=== PATIENT | female | born 1940 | race Caucasian/White ===

== ENCOUNTER → 2019-09-10 | Outpatient (CLI) | payer MEDICARE ==
--- NOTE | 2019-09-10 13:42 | XR ---
EXAMINATION TYPE: XR knee complete LT DATE OF EXAM: 09/10/2019 CLINICAL HISTORY: Bruising and pain after fall injury TECHNIQUE: Three views of the left knee are obtained. COMPARISON: None. FINDINGS: There is no acute fracture/dislocation evident in left knee. Meniscal calcification is pre sent. Moderate to severe narrowing patellofemoral compartment with mild to moderate spurring . Modera te narrowing medial and lateral tibiofemoral compartments. Mild to moderate spurring medial tibial fe moral compartment. Overlying clothing material is present. IMPRESSION: There is no acute fracture or dislocation in the left knee.
== END | disposition home or self-care (01) ==
LOC: RADXRMAIN 13:16
PROVIDERS: ATTEND Family Medicine
DX: M25.562 Pain in left knee (principal)

== ENCOUNTER → 2020-08-06 | Outpatient (CLI) | payer MEDICARE ==
--- NOTE | 2020-08-06 10:08 | US ---
EXAMINATION TYPE: US gallbladder DATE OF EXAM: 08/06/2020 COMPARISON: NONE CLINICAL HISTORY: K81.9 Cholysistitis. acid reflux EXAM MEASUREMENTS: Liver Length: 15.0 cm Gallbladder Wall: 0.3 cm CBD: 0.6 cm Right Kidney: 9.9 x 3.3 x 3.9 cm *Technical limitations due to large amount of overlying bowel content Pancreas: Obscured by bowel gas Liver: appears wnl Gallbladder: no evidence of stones Evidence for sonographic Reyez's sign: no CBD: appears wnl Right Kidney: no evidence of hydronephrosis IMPRESSION: No distinct abnormality seen.
== END | disposition home or self-care (01) ==
LOC: RADUSWWP 09:28
PROVIDERS: ATTEND Family Medicine
DX: K81.9 Cholecystitis, unspecified (principal)
CPT/HCPCS: 76705

== ENCOUNTER → 2021-07-01 | Outpatient (CLI) | payer MEDICARE ==
--- NOTE | 2021-07-01 17:21 | XR ---
Left wrist HISTORY: Trauma 4 days prior, pain 4 views the left wrist Some remodeling is present at the radiocarpal joint. Bone mineralization is reduced. There is soft ti ssue swelling. Osteopenia arthritic change present at the carpometacarpal joint of the first digit an d intercarpal row radial aspect. Chondrocalcinosis suspected along the triangular fibrocartilage. Sma ll ossific density noted at the dorsal and volar aspect of the joint, possibly well-corticated. IMPRESSION: No dislocation is evident. Osteoarthritis, consider crystal deposition arthropathy. Diffi cult to exclude a small chip fracture, wrist MRI or CT may be of benefit
== END | disposition home or self-care (01) ==
LOC: RADXRMAIN 16:21
PROVIDERS: ATTEND Family Medicine
DX: M19.032 Primary osteoarthritis, left wrist (principal)

== ENCOUNTER 2025-04-05 20:06 | Inpatient (IN) | payer MEDICARE ==
--- NOTE | 2025-04-05 20:29 | ED ---
Fall HPI - General Chief Complaint: Fall Stated Complaint: Fall Time Seen by Provider: 04/05/25 20:12 Source: patient, EMS, RN notes reviewed, old records reviewed, Caregiver Mode of arrival: EMS Limitations: no limitations, altered mental status - History of Present Illness Initial Comments: This is a 84-year-old female who had a significant fall prior to arrival, family overheard patient fall and is complaining of severe right-sided chest pain back pain headache and neck pain. 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 Witnessed: yes, by family Place Fall Occurred: home Loss of Consciousness: none Prolonged Down Time?: no Symptoms Prior to Fall: none Location: head, neck, chest, back Location - Extremities: Right: Shoulder Severity: severe Severity scale (1-10): 10 Quality: sharp Context: tripped/slipped Associated Symptoms: denies - Related Data Home Medications Medication Instructions Recorded Confirmed Escitalopram [Lexapro] 10 mg PO DAILY 04/06/25 04/06/25 Omeprazole 40 mg PO DAILY 04/06/25 04/06/25 Simvastatin [Zocor] 40 mg PO DAILY 04/06/25 04/06/25 Allergies Allergy/AdvReac Type Severity Reaction Status Date / Time Penicillins Allergy Rash/Hives Verified 04/06/25 09:28 Sulfa (Sulfonamide Allergy Rash/Hives Verified 04/06/25 09:28 Antibiotics) temazepam [From Restoril] Allergy Unknown Verified 04/06/25 09:28 cephalexin [From Keflex] AdvReac Nausea & Verified 04/06/25 09:28 Vomiting codeine AdvReac Nausea & Verified 04/06/25 09:28 Vomiting erythromycin base AdvReac Unknown Verified 04/06/25 09:28 hydrocodone [From Vicodin] AdvReac Nausea & Verified 04/06/25 09:28 Vomiting methylprednisolone AdvReac Unknown Verified 04/06/25 09:28 procaine [From Novocain] AdvReac Unknown Verified 04/06/25 09:28 Review of Systems ROS Statement: Those systems with pertinent positive or pertinent negative responses have been documented in the HPI. ROS Other: All systems not noted in ROS Statement are negative. Past Medical History Past Medical History: Cancer, Hyperlipidemia Past Surgical History: Hysterectomy, Joint Replacement Additional Past Surgical History / Comment(s): Cystocele repair, bunionectomy, nose cancer surgery, hip surgery Smoking Status: Never smoker Past Alcohol Use History: None Reported Past Drug Use History: None Reported General Exam - General Exam Comments Initial Comments: GCS 15 BS diminished Subcu Emphysems R chest Limitations: no limitations General appearance: alert, in no apparent distress, anxious, cachectic Head exam: Present: atraumatic, normocephalic, normal inspection Eye exam: Present: normal appearance, PERRL, EOMI. Absent: scleral icterus, conjunctival injection, periorbital swelling ENT exam: Present: normal exam, mucous membranes moist Neck exam: Present: normal inspection. Absent: tenderness, meningismus, lymphadenopathy Respiratory exam: Present: normal lung sounds bilaterally. Absent: respiratory distress, wheezes, rales, rhonchi, stridor Cardiovascular Exam: Present: regular rate, normal rhythm, normal heart sounds. Absent: systolic murmur, diastolic murmur, rubs, gallop, clicks GI/Abdominal exam: Present: soft, normal bowel sounds. Absent: distended, tenderness, guarding, rebound, rigid Extremities exam: Present: normal inspection, full ROM, normal capillary refill. Absent: tenderness, pedal edema, joint swelling, calf tenderness Back exam: Present: normal inspection Neurological exam: Present: alert, oriented X3, CN II-XII intact Psychiatric exam: Present: normal affect, normal mood Skin exam: Present: warm, dry, intact, normal color. Absent: rash Course Vital Signs 04/05/25 04/05/25 04/06/25 20:11 21:43 00:04 Temperature 97.2 F L Pulse Rate 55 L 56 L 60 Respiratory 18 18 20 Rate Blood Pressure 196/88 192/81 191/82 O2 Sat by Pulse 95 96 98 Oximetry 04/06/25 04/06/25 04/06/25 02:55 03:48 05:00 Temperature Pulse Rate 79 81 78 Respiratory 20 16 18 Rate Blood Pressure 185/82 154/61 154/74 O2 Sat by Pulse 97 97 97 Oximetry 04/06/25 04/06/25 04/06/25 07:31 08:00 09:30 Temperature Pulse Rate 56 L 52 L Respiratory 16 21 Rate Blood Pressure 181/79 181/78 O2 Sat by Pulse 97 100 100 Oximetry 04/06/25 04/06/25 04/06/25 10:40 12:00 13:00 Temperature Pulse Rate 56 L 61 58 L Respiratory 18 34 H 20 Rate Blood Pressure 163/99 177/74 175/70 O2 Sat by Pulse 98 97 99 Oximetry 04/06/25 14:40 Temperature Pulse Rate 52 L Respiratory 23 Rate Blood Pressure 162/66 O2 Sat by Pulse 99 Oximetry - Reevaluation(s) Reevaluation #1: 04/05/25 22:37 Medical records reviewed Reevaluation #2: 04/05/25 22:37 Patient's pain is improved Patient breathing improved after chest tube Reevaluation #3: 04/05/25 22:37 Patient informed of results and questions answered Reevaluation #4: Was pt. sent in by a medical professional or institution (, PA, COMMISSIONER OF OFFICIALS, urgent care, hospital, or shelter...) When possible be specific @ -no Did you speak to anyone other than the patient for history (EMS, parent, family, police, friend...)? What history was obtained from this source @ -no Did you review nursing and triage notes (agree or disagree)? Why? @ -agree Are old charts reviewed (outside hosp., previous admission, EMS record, old EKG, old radiological studies, urgent care reports/EKG's, shelter records)? Report findings @ -yes Differential Diagnosis (chest pain, altered mental status, abdominal pain women, abdominal pain men, vaginal bleeding, weakness, fever, dyspnea, syncope, headache, dizziness, GI bleed, back pain, seizure, CVA, palpatations, mental hea lth, musculoskeletal)? @ -prior EKG interpreted by me (3pts min.). @ -yes X-rays interpreted by me (1pt min.). @ -yes n positive for Thora vent placed correctly CT interpreted by me (1pt min.). @ -Yes positive multiple rib fractures right-sided with pneumothorax moderate U/S interpreted by me (1pt. min.). @ -no What testing was considered but not performed or refused? (CT, X-rays, U/S, labs)? Why? @ -none What meds were considered but not given or refused? Why? @ -none Did you discuss the management of the patient with other professionals (professionals i.e. , PA, COMMISSIONER OF OFFICIALS, lab, RT, psych nurse, social security assessor, residential nurse, teacher, combatant diver officer, family preservation caseworker)? Give summary @ -no Was smoking cessation discussed for >3mins.? @ -no Was critical care preformed (if so, how long)? @ -yes31 Were there social determinants of health that impacted care today? How? (Homelessness, low income, unemployed, alcoholism, drug addiction, transportation, low edu. Level, literacy, decrease access to med. care, custodial, rehab)? @ -none Was there de-escalation of care discussed even if they declined (Discuss DNR or withdrawal of care, Hospice)? DNR status @ -no What co-morbidities impacted this encounter? (DM, HTN, Smoking, COPD, CAD, Cancer, CVA, ARF, Chemo, Hep., AIDS, mental health diagnosis, sleep apnea, morbid obesity)? @ -none Was patient admitted / discharged? Hospital course, mention meds given and route, prescriptions, significant lab abnormalities, going to OR and other pertinent info. @ - 84 female to the ER will be admitted for multiple rib fractures pulmonary contusions right-sided chest tube. Patient will admit to the ICU severe back pain and chest pain improved breathing has improved Admitted Undiagnosed new problem with uncertain prognosis? @ -no Drug Therapy requiring intensive monitoring for toxicity (Heparin, Nitro, Insulin, Cardizem)? @ -no Were any procedures done? @ -Yes chest tube thoracostomy right side Diagnosis/symptom? @ -Fall, right-sided rib fracture, right-sided pneumothorax, weakness Acute, or Chronic, or Acute on Chronic? @ -Acute Uncomplicated (without systemic symptoms) or Complicated (systemic symptoms)? @ -Complicated Side effects of treatment? @ -no Exacerbation, Progression, or Severe Exacerbation? @ -exacerbation Poses a threat to life or bodily function? How? (Chest pain, USA, IA, pneumonia, PE, COPD, DKA, ARF, appy, cholecystitis, CVA, Diverticulitis, Homicidal, Suicidal, threat to staff... and all critical care pts) @ -yes extremes of age, pneumothorax Reevaluation #5: Differential Back Pain: Strain, zoster, cauda equina syndrome, epidural abscess, vertebral osteomyelitis, discitis, fracture, subluxation, disc herniation, DJD, spinal stenosis, dissection, AAA, pancreatitis, peptic ulcer disease, pyelonephritis, kidney stone, this is not meant to be an all-inclusive list. Differential Weakness: Hypoglycemia, shock, sepsis, hyponatremia, anemia, infection, IA, ETOH, adverse medicine reaction, overdose, stroke, this is not meant to be an all-inclusive list. - Consultations Consultation #1: Spoke with Dr. Verma on-call trauma accepts the admission Consultation #2: Spoke with with ICU who agrees patient to ICU Procedures - Chest Tube Insertion Consent Obtained: verbal consent Side of Procedure: right Indication: Pneumothorax Placed on monitor/pulse oximetry: Yes Site Prep: Chloroprep Local Anesthesia: Lidocaine 1% Insertion Site: Other (Midclavicular, fourth intercostal) Tube Size (Guinean): Other (For event) Returns: Air Sutured in Place: No Attached to Suction: Yes Type of Suction: Pleuravac Repeat X-ray Results: Lung Inflated Patient Tolerated Procedure: well Complications: Pain Medical Decision Making - Medical Decision Making 84 female to the ER will be admitted for multiple rib fractures pulmonary contusions right-sided chest tube. Patient will admit to the ICU severe back pain and chest pain improved breathing has improved - Lab Data Result diagrams: 04/09/25 05:57 04/09/25 05:57 - EKG Data -: EKG Interpreted by Me (EKG is sinus bradycardia 59 WA 207 QRS 150 QTc 476) - Radiology Data Radiology results: report reviewed (CT brain C-spine chest positive moderate right-sided pneumothorax, chest x-ray improved), image reviewed Critical Care Time Critical Care Time: Yes Total Critical Care Time: 31 Disposition Clinical Impression: Fall, Fracture of rib of right side, Pneumothorax, right, Back contusion, Weakness, Ribs, multiple fractures Disposition: ADMITTED IP TO THIS [facility] Condition: Serious Is patient prescribed a controlled substance at d/c from ED?: No Time of Disposition: 22:40
[2025-04-05] MEDS: MORPHINE SULFATE 4 MG/ML SYRINGE IVP STA (21:38)
[2025-04-05] MEDS: SODIUM CHLORIDE 0.9% 500 ML 500 ML IV ONE (21:41)
--- NOTE | 2025-04-05 21:48 | CT ---
EXAMINATION TYPE: CT brain cspine wo con DATE OF EXAM: 04/05/2025 9:37 PM COMPARISON: None. CLINICAL INDICATION: Female, 84 years old with history of fall; fall TECHNIQUE: Brain: Multiple axial CT images of the brain were obtained without IV contrast. Cspine: Axial CT images from the skull base to the inferior aspect of T2 we obtained without intraven ous contrast. Coronal and sagittal reformatted images were also reviewed. . CT DLP: 1266.8 mGycm, Automated exposure control for dose reduction was used. FINDINGS: Brain: Extra-axial spaces: No abnormal extra-axial fluid collections. Ventricular system: Dilatation in proportion to cerebral atrophy. Cerebral parenchyma: No acute intraparenchymal hemorrhage or mass effect. The leon-white junction is well differentiated. Scattered hypoattenuating areas are seen within the white matter, compatible wi th severe microvascular ischemic disease. Cerebellum: Unremarkable. Mass effect: No evidence of midline shift. Intracranial vasculature: unremarkable Soft tissues: Normal. Calvarium/osseous structures: No depressed skull fracture. Paranasal sinuses and mastoid air cells: Clear. Visualized orbits: Orbital contents are intact. Cervical spine: Fracture: None. Osseous structures: Multilevel degenerative disc disease changes with endplate spurring and disc oste ophyte complex's. Vertebral alignment: Within normal limits. Spinal canal/Neural Foramina: Multilevel facet arthropathy, uncovertebral hypertrophy and posterior d isc osteophyte complexes cause varying degrees of multilevel neural foraminal narrowing and spinal ca nal stenosis. Neck soft tissues: Prevertebral soft tissues are within normal limits. Other: Partially visualized subcutaneous emphysema involving the right chest wall and right-sided pne umothorax. IMPRESSION: 1. No acute intracranial process. 2. No acute fracture or traumatic subluxation of the cervical spine. [facility], , 04/05/2025 9:46 PM
--- NOTE | 2025-04-05 21:57 | CT ---
EXAMINATION TYPE: CT chest wo con DATE OF EXAM: 04/05/2025 9:37 PM COMPARISON: None. CLINICAL INDICATION: Female, 84 years old with history of fall; PHH, fall TECHNIQUE: Multiple axial images were obtained through the chest. Sagittal and coronal reformats were created for review. MIP was performed on a separate workstation. CT DLP: 246.1 mGycm, Automated exposure control for dose reduction was used. FINDINGS: Mild cardiomegaly without significant pericardial effusion. Ascending aorta without aneurysmal dilata tion. Coronary artery calcifications. Right hilar calcified lymph nodes. Extensive right chest wall and right paraspinal subcutaneous emphysema. There is a moderate size righ t-sided pneumothorax measuring up to 5.0 cm from the pleural surface. Trace bilateral pleural effusio ns. There are groundglass and consolidative changes throughout the right lung which could reflect pul monary contusions. Left lung demonstrate no evidence of pneumothorax. No sizable left-sided pleural e ffusion. Comminuted acute displaced fractures of the right lateral sixth, seventh and eighth ribs. No definite left-sided rib fracture deformity. Mild acute fracture involving the superior L1 endplate with assoc iated mild vertebral body height loss. No evidence of significant retropulsion. IMPRESSION: 1. Comminuted mildly displaced acute fractures involving the right lateral sixth, seventh and eighth ribs with associated moderate sized right pneumothorax as described above. 2. Groundglass and consolidative changes involving the residual right lung suggestive of pulmonary c ontusions. 3. Acute fracture of the L1 superior endplate with mild vertebral body height loss. 4. Extensive subcutaneous emphysema throughout the right chest wall and right paraspinal soft tissue s. 5. Small right pleural effusion/hemothorax. *Critical findings were discussed with Dr. Mauricio at 9:51 PM on 04/05/2025. [facility], , 04/05/2025 9:55 PM
[2025-04-05] MEDS: LIDOCAINE 1%-EPI 1:100,000 20 ML VIAL SQ STA (22:27)
[2025-04-05] MEDS: LORazepam 1 MG/0.5 ML VIAL IV STA (22:27)
[2025-04-05] MEDS ORDERED: IPRATROPIUM-ALBUTEROL 3 ML NEB INHALATION PRN (22:32)
[2025-04-05] MEDS ORDERED: NALOXONE 0.4 MG/ML 1 ML VIAL IV PRN ×2 (22:32)
[2025-04-05 23:43] LABS: Basophils # (A) 0.04 10*3/uL (0.00-0.10); Basophils % (A) 0.3 %; Eosinophils # (A) 0.07 10*3/uL (0.04-0.35); Eosinophils % (A) 0.6 %; HCT 37.2 % (37.2-46.3); HGB 12.1 g/dL (12.0-15.0); Lymphocytes # (A) 0.86 10*3/uL (0.90-5.00); Lymphocytes % (A) 7.2 %; MCH 30.4 pg (27.0-32.0); MCHC 32.5 g/dL (32.0-37.0); MCV 93.5 fL (80.0-97.0); Mean Platelet Volume 9.8 fL (9.5-12.2); Monocytes # (A) 0.62 10*3/uL (0.20-1.00); Monocytes % (A) 5.2 %; Neutrophils # (A) 10.22 10*3/uL (1.80-7.70); Neutrophils % (A) 86.1 %; Platelet Count 227 10*3/uL (140-440); RBC 3.98 10*6/uL (4.10-5.20); RDW 13.4 % (11.5-14.5); WBC 11.88 10*3/uL (4.50-10.00)
[2025-04-05] MEDS: DEXTROSE 5%-0.45% NACL 1,000 ML IV SCH (23:55)
[2025-04-06 00:01] LABS: INR 0.9 (<1.2); Prothrombin Time 10.3 sec (10.0-12.5)
[2025-04-06 00:07] LABS: ALT 17 U/L (4-34); AST 29 U/L (14-36); African American GFR (CKD) >90 (>60 ml/min/1.73 sqM); Alkaline Phosphatase 72 U/L (38-126); Anion Gap 9 mmol/L; Blood Urea Nitrogen 17 mg/dL (7-17); Calcium 9.1 mg/dL (8.4-10.2); Carbon Dioxide 24 mmol/L (22-30); Chloride 105 mmol/L (98-107); Glucose 121 mg/dL (74-99); Magnesium 1.7 mg/dL (1.6-2.3); Non-African American GFR(CKD) 81 (>60 ml/min/1.73 sqM); Phosphorus 3.4 mg/dL (2.5-4.5); Potassium 4.1 mmol/L (3.5-5.1); Sodium 138 mmol/L (137-145); Total Bilirubin 0.6 mg/dL (0.2-1.3); Total Protein 6.4 g/dL (6.3-8.2)
[2025-04-06 00:25] LABS: Partial Thromboplastin Time 19.3 sec (22.0-30.0)
--- NOTE | 2025-04-06 01:11 | XR ---
ADDENDUM - Added by Tana Simmons MD on 04/06/2025 1:16 AM (-04:00) Please note there is a mildly displaced fracture of the right transverse process of L5. Consider further evaluation with CT. EXAM: XR Pelvis, 1 or 2 Views CLINICAL HISTORY: Injury TECHNIQUE: Frontal view of the pelvis. COMPARISON: No relevant prior studies available. FINDINGS: Bones/joints: Degenerative changes are worse at L4-L5. No acute fracture. No dislocation. Soft tissues: Unremarkable. IMPRESSION: No acute findings in the pelvis. <MYCVCSECTION> Communications: 04/06/25 01:44 Verify Receipt Verified receipt with [facility] for Dr. Patrick on 04/06 01:44 (-04:00)
--- NOTE | 2025-04-06 02:07 | XR ---
EXAM: XR Chest, 1 View CLINICAL HISTORY: ITS.REASON XR Reason: fall TECHNIQUE: Frontal view of the chest. COMPARISON: No relevant prior studies available. FINDINGS: Lungs: No consolidation or mass. Pleural space: No acute findings. Heart: cardiomegaly. Bones/joints: No acute findings. IMPRESSION: No acute cardiopulmonary process.
--- NOTE | 2025-04-06 02:08 | XR ---
EXAM: XR Right Shoulder Complete, 2 or More Views CLINICAL HISTORY: ITS.REASON XR Reason: fall TECHNIQUE: Two or more views of the right shoulder. COMPARISON: No relevant prior studies available. FINDINGS: Bones/joints: No acute fracture. No dislocation. Mild AC joint osteoarthrosis. Soft tissues: Unremarkable. IMPRESSION: No acute osseous abnormalities.
--- NOTE | 2025-04-06 02:08 | XR ---
EXAM: XR Lumbosacral Spine, 2 or 3 Views CLINICAL HISTORY: ITS.REASON XR Reason: fall TECHNIQUE: Frontal and lateral views of the lumbar spine and sacrum. COMPARISON: No relevant prior studies available. FINDINGS: Vertebrae: No acute fracture. Minimal anterolisthesis L3 on L4. Levoscoliosis. Disc spaces: Degenerative changes. Soft tissues: Unremarkable. IMPRESSION: No acute findings.
[2025-04-06 06:16] LABS: Basophils # (A) 0.02 10*3/uL (0.00-0.10); Basophils % (A) 0.3 %; Eosinophils # (A) 0.03 10*3/uL (0.04-0.35); Eosinophils % (A) 0.4 %; HCT 35.6 % (37.2-46.3); HGB 11.5 g/dL (12.0-15.0); Lymphocytes # (A) 1.31 10*3/uL (0.90-5.00); Lymphocytes % (A) 17.1 %; MCH 30.4 pg (27.0-32.0); MCHC 32.3 g/dL (32.0-37.0); MCV 94.2 fL (80.0-97.0); Mean Platelet Volume 9.6 fL (9.5-12.2); Monocytes # (A) 0.58 10*3/uL (0.20-1.00); Monocytes % (A) 7.6 %; Neutrophils # (A) 5.71 10*3/uL (1.80-7.70); Neutrophils % (A) 74.3 %; Platelet Count 196 10*3/uL (140-440); RBC 3.78 10*6/uL (4.10-5.20); RDW 13.6 % (11.5-14.5); WBC 7.67 10*3/uL (4.50-10.00)
[2025-04-06 06:36] LABS: ALT 16 U/L (4-34); AST 27 U/L (14-36); African American GFR (CKD) >90 (>60 ml/min/1.73 sqM); Albumin 3.7 g/dL (3.5-5.0); Alkaline Phosphatase 62 U/L (38-126); Anion Gap 5 mmol/L; Blood Urea Nitrogen 15 mg/dL (7-17); Calcium 9.1 mg/dL (8.4-10.2); Carbon Dioxide 27 mmol/L (22-30); Chloride 104 mmol/L (98-107); Glucose 114 mg/dL (74-99); Lipase 51 U/L (23-300); Magnesium 1.9 mg/dL (1.6-2.3); Non-African American GFR(CKD) 82 (>60 ml/min/1.73 sqM); Phosphorus 3.7 mg/dL (2.5-4.5); Potassium 4.5 mmol/L (3.5-5.1); Sodium 136 mmol/L (137-145); Total Bilirubin 0.8 mg/dL (0.2-1.3); Total Protein 5.9 g/dL (6.3-8.2)
[2025-04-06] MEDS: MORPHINE SULFATE 2 MG/ML SYRINGE IVP PRN (06:56)
[2025-04-06] MEDS: LIDOCAINE 4% PATCH TOPICAL ONE (06:58)
--- NOTE | 2025-04-06 07:17 | XR ---
EXAMINATION TYPE: XR chest 1V DATE OF EXAM: 04/06/2025 5:54 AM COMPARISON: Chest radiographs from 04/05/2025, CT chest 04/05/2025 TECHNIQUE: XR chest 1V Portable AP radiograph of the chest. CLINICAL INDICATION:Female, 84 years old with history of ptx; FINDINGS: Lungs/Pleura: Left lung is clear. Stable position of pleural catheter overlying the right midlung. No sizable pneumothorax. No pleural effusion. Pulmonary vascularity: Unremarkable. Heart/mediastinum: Cardiomediastinal silhouette is enlarged and stable. Atherosclerotic calcificatio ns are seen in the aorta. Musculoskeletal: Right shoulder arthropathy. Redemonstration of mildly displaced right-sided lateral sixth, seventh, and eighth rib fractures Other: Similar small right chest and right supraclavicular subcutaneous emphysema. Biopsy marker with in the right breast. IMPRESSION: Overall similar examination with right pleural catheter in stable position. No sizable pneumothorax. Redemonstration of multiple right-sided rib fractures and similar subcutaneous emphysema. [facility], , 04/06/2025 7:15 AM
[2025-04-06] MEDS: ESCITALOPRAM 10 MG TAB PO SCH (10:38)
--- NOTE | 2025-04-06 12:50 | P.CNPUL ---
History of Present Illness Consult date: 04/06/25 Requesting physician: Chele Mauricio Reason for consult: pneumothorax, abnormal CXR/CT Chief complaint: Ground-level fall History of present illness: This is an 84-year-old female patient with a known history of hyperlipidemia who presented to the emergency room last evening 1 hour after sustaining a ground- level fall. She was complaining of head neck right sided chest and back pain. Right shoulder pain. CT scan of the brain and C-spine revealed no evidence of fractures. CT scan of the chest revealed comminuted mildly displaced acute fractures involving the right lateral 6th, 7th and 8th ribs with associated moderate size right pneumothorax. Groundglass and consolidative changes involving the right lung suggestive of pulmonary contusions. Acute fracture of the L1 superior endplate with mild vertebral body height loss. Extensive subcutaneous emphysema throughout the right chest wall. Lumbar spine, pelvis, right shoulder x-rays all revealed no evidence of fracture. A right sided Thora vent catheter was placed in the emergency department. Follow-up chest x-ray reveals no sizable pneumothorax. She is seen today in consultation in the emergency department. She is currently resting on a stretcher. Awake and alert in no acute distress. Maintaining O2 saturations in the 90s on 3 L/min per nasal cannula. Right sided Thora vent catheter to be placed to Pleur-evac and wall suction. White count 7.6. Hemoglobin 11.5. Platelets 196. Sodium 136. Potassium 4.5. Bicarb 27. BUN 15. Creatinine 0.65. Glucose 114. She is on D5W and half-normal saline at 60 mL/h. Receiving morphine for pain control. Review of Systems REVIEW OF SYSTEMS: CONSTITUTIONAL: Denies any recent significant weight loss or weight gain. EYES: Denies change in vision. EARS, NOSE, MOUTH, THROAT: Denies headaches, denies sore throat. CARDIOVASCULAR: Positive for right sided chest pain, no palpitations or syncopal episodes. RESPIRATORY: Positive for shortness of breath, no cough, congestion or hemoptysis. GASTROINTESTINAL: Denies change in appetite, denies abdominal pain GENITOURINARY: Denies hematuria, denies infections. MUSKULOSKELETAL: Positive for multiple areas of right sided pain. INTEGUMENTARY: Denies rash, denies eczema. NEUROLOGICAL: Denies recent memory loss, no recent seizure activity. PSYCHIATRIC: Denies anxiety, denies depression. HEMATOLOGIC/LYMPHATIC: Denies anemia, denies enlarged lymph nodes. Past Medical History Past Medical History: Cancer, Hyperlipidemia Past Surgical History: Hysterectomy, Joint Replacement Additional Past Surgical History / Comment(s): Cystocele repair, bunionectomy, nose cancer surgery, hip surgery Smoking Status: Never smoker Past Alcohol Use History: None Reported Past Drug Use History: None Reported Medications and Allergies Home Medications Medication Instructions Recorded Confirmed Type Escitalopram [Lexapro] 10 mg PO DAILY 04/06/25 04/06/25 History Omeprazole 40 mg PO DAILY 04/06/25 04/06/25 History Simvastatin [Zocor] 40 mg PO DAILY 04/06/25 04/06/25 History Allergies Allergy/AdvReac Type Severity Reaction Status Date / Time Penicillins Allergy Rash/Hives Verified 04/06/25 09:28 Sulfa (Sulfonamide Allergy Rash/Hives Verified 04/06/25 09:28 Antibiotics) temazepam [From Restoril] Allergy Unknown Verified 04/06/25 09:28 cephalexin [From Keflex] AdvReac Nausea & Verified 04/06/25 09:28 Vomiting codeine AdvReac Nausea & Verified 04/06/25 09:28 Vomiting erythromycin base AdvReac Unknown Verified 04/06/25 09:28 hydrocodone [From Vicodin] AdvReac Nausea & Verified 04/06/25 09:28 Vomiting methylprednisolone AdvReac Unknown Verified 04/06/25 09:28 procaine [From Novocain] AdvReac Unknown Verified 04/06/25 09:28 Physical Exam Vitals: Vital Signs Temp Pulse Resp BP Pulse Ox 04/06/25 12:00 61 34 H 177/74 97 04/06/25 10:40 56 L 18 163/99 98 04/06/25 09:30 52 L 21 181/78 100 04/06/25 08:00 56 L 16 181/79 100 04/06/25 07:31 97 04/06/25 05:00 78 18 154/74 97 04/06/25 03:48 81 16 154/61 97 04/06/25 02:55 79 20 185/82 97 04/06/25 00:04 60 20 191/82 98 04/05/25 21:43 56 L 18 192/81 96 04/05/25 20:11 97.2 F L 55 L 18 196/88 95 Intake and Output 04/05/25 04/06/25 04/06/25 22:59 06:59 14:59 Other: Weight 58.967 kg GENERAL EXAM: Alert, frail 84-year-old female, on 3 L nasal cannula, fairly comfortable in no apparent distress. HEAD: Normocephalic. EYES: Normal reaction of pupils, equal size. NOSE: Clear with pink turbinates. THROAT: No erythema or exudates. NECK: No masses, no JVD. CHEST: No chest wall deformity. Right sided Thora vent catheter in place to Pleur-evac and wall suction. LUNGS: Equal air entry with crackles in the right lung base. CVS: S1 and S2 normal with no audible murmur, regular rhythm. ABDOMEN: No hepatosplenomegaly, normal bowel sounds, no guarding or rigidity. SPINE: No scoliosis or deformity SKIN: No rashes CENTRAL NERVOUS SYSTEM: No focal deficits, tone is normal in all 4 extremities. EXTREMITIES: There is no peripheral edema. No clubbing, no cyanosis. Perip heral pulses are intact. Results - Laboratory Findings CBC and BMP: 04/06/25 06:00 04/06/25 06:00 PT/INR, D-dimer PT 10.3 sec (10.0-12.5) 04/05/25 23:00 INR 0.9 (<1.2) 04/05/25 23:00 Abnormal lab findings: Abnormal Labs 04/05/25 04/05/25 04/05/25 23:00 23:00 23:00 WBC 11.88 H RBC 3.98 L Hgb Hct Immature Gran # 0.07 H Neutrophils # 10.22 H Lymphocytes # 0.86 L Eosinophils # APTT 19.3 L Sodium Glucose 121 H Total Protein 04/06/25 04/06/25 06:00 06:00 WBC RBC 3.78 L Hgb 11.5 L Hct 35.6 L Immature Gran # Neutrophils # Lymphocytes # Eosinophils # 0.03 L APTT Sodium 136 L Glucose 114 H Total Protein 5.9 L - Diagnostic Findings Chest x-ray: image reviewed CT scan - chest: image reviewed Assessment and Plan Assessment: Trauma secondary to ground-level fall with comminuted mildly displaced acute fractures involving the right lateral 6th, 7th and 8th ribs with associated moderate-sized right pneumothorax. Groundglass and consolidative changes involving the residual right lung suggestive of a pulmonary contusion. Extensive subcutaneous emphysema throughout the right chest wall. Status post Thora vent placement. Follow-up chest x-ray reveals residual pneumothorax Right shoulder, hip and back pain secondary to fall. No evidence of fractures Hyperlipidemia Gastroesophageal reflux disease Lifelong non-smoker Plan: The patient was seen and evaluated All imaging, labs and medications reviewed Currently on 3 L nasal cannula Right sided Thora vent remains in place Continue to Pleur-evac and wall suction Educated regarding the use of the incentive spirometer Continue bronchodilator Titrate down the FiO2 as tolerated Assure adequate pain control Increase her activity as tolerated We will continue to follow and make further recommendations based on her clinical status I have personally seen and examined the patient, performed the documentation and the assessment and plan as written. Number of minutes spent on the visit: 20 Dictation was produced using [employer] dictation software. Please excuse any grammatical, word or spelling errors. Time with Patient: Greater than 30
--- NOTE | 2025-04-06 14:02 | P.CONS ---
History of Present Illness - Reason for Consult Consult date: 04/06/25 Medical management - History of Present Illness History of present illness; patient is a 84-year-old female with past medical history significant for hyperlipidemia presented the ER after a fall. Patient stated that she was all right last night when she walking in her house when she lost her balance ended up having a ground-level mechanical fall. Patient did not lose her consciousness. Patient denies any trauma to her head. Denies any jerking movement of any extremity. There is no complaint of weakness of any ext remity. Following fall patient started complaining of back pain and neck pain. There is no complaint of shortness of breath. Patient denies any palpitation. There is no complaint of orthopnea or PND. Denies any nausea, vomiting abdominal pain. Patient denies any complaint of dizziness. There is no complaint of headache. Because of fall, patient was brought to the ER Initial lab work done in the ER showed WBC 11.88, hemoglobin 12.1, platelet count 227, sodium 138, potassium 4.1, BUN 17, creatinine 0.66, glucose 121, lactate 1.4 calcium 9.1, AST 29, ALT 17, troponin 0.015 EKG done in the ER showed heart rate of 59 , no ST segment elevation or depression seen, no T-wave inversions seen. Chest x-ray done in the ER showed no acute cardiopulmonary process X-ray of the pelvis done showed mildly displaced fracture of the right transverse process of L5 Lumbar x-ray done showed slightly displaced fracture of the right transverse process of L5 CT head done showed no acute intracranial process CT cervical spine done showed no evidence of subluxation or fracture of the cervical spine X-ray shoulder done showed no acute fractures CT chest done showed comminuted mildly displaced acute fractures involving the right lateral 6th, 7th and 8th ribs with moderate right-sided pneumothorax Patient admitted to internal medicine service REVIEW OF SYSTEMS: CONSTITUTIONAL: No fever, no malaise, no fatigue. HEENT: No recent visual problems or hearing problems. Denied any sore throat. CARDIOVASCULAR: as mentioned above. PULMONARY: No shortness of breath, no cough, no hemoptysis. GASTROINTESTINAL: No diarrhea, no nausea, no vomiting, no abdominal pain. NEUROLOGICAL: No headaches, no weakness, no numbness. HEMATOLOGICAL: Denies any bleeding or petechiae. GENITOURINARY: Denies any burning micturition, frequency, or urgency. MUSCULOSKELETAL/RHEUMATOLOGICAL: as mentioned above ENDOCRINE: Denies any polyuria or polydipsia. The rest of the 14-point review of systems is negative. PHYSICAL EXAMINATION: GENERAL: The patient is alert and oriented x3, not in any acute distress. Well developed, well nourished. HEENT: Pupils are round and equally reacting to light. EOMI. No scleral icterus. No conjunctival pallor. Normocephalic, atraumatic. No pharyngeal erythema. No thyromegaly. CARDIOVASCULAR: S1 and S2 present. No murmurs, rubs, or gallops. PULMONARY: Chest is clear to auscultation, no wheezing or crackles. ABDOMEN: Soft, nontender, nondistended, normoactive bowel sounds. No palpable organomegaly. MUSCULOSKELETAL: No joint swelling or deformity. EXTREMITIES: No cyanosis, clubbing, or pedal edema. NEUROLOGICAL: Gross neurological examination did not reveal any focal deficits. SKIN: No rashes. Assessment and plan Ground-level fall Fracture of right 6 7th and 8th ribs Right-sided pneumothorax Pulmonary contusion acute fracture of the L1 superior endplate with mild vertebral body height loss Subcutaneous emphysema History of hyperlipidemia Depression Monitor vital signs Monitor CBC Monitor CMP Continue telemetry monitoring Continue oxygen supplementation Aggressive bronchopulmonary hygiene Ordered breathing treatments Continue chest tube management per pulmonology Continue pain management Consulted Ortho for lumbar spine fracture Resume home meds Labs and medication were reviewed.. Continue same treatment. Continue with symptomatic treatment. Resume home medication. Monitor labs and vitals. DVT and GI prophylaxis. Further recommendations as per clinical course of the patient Dictation was produced using [employer] dictation software. please excuse any grammatical, word or spelling errors. Past Medical History Past Medical History: Cancer, Hyperlipidemia Past Surgical History: Hysterectomy, Joint Replacement Additional Past Surgical History / Comment(s): Cystocele repair, bunionectomy, nose cancer surgery, hip surgery Smoking Status: Never smoker Past Alcohol Use History: None Reported Past Drug Use History: None Reported Medications and Allergies Home Medications Medication Instructions Recorded Confirmed Type Escitalopram [Lexapro] 10 mg PO DAILY 04/06/25 04/06/25 History Omeprazole 40 mg PO DAILY 04/06/25 04/06/25 History Simvastatin [Zocor] 40 mg PO DAILY 04/06/25 04/06/25 History Allergies Allergy/AdvReac Type Severity Reaction Status Date / Time Penicillins Allergy Rash/Hives Verified 04/06/25 09:28 Sulfa (Sulfonamide Allergy Rash/Hives Verified 04/06/25 09:28 Antibiotics) temazepam [From Restoril] Allergy Unknown Verified 04/06/25 09:28 cephalexin [From Keflex] AdvReac Nausea & Verified 04/06/25 09:28 Vomiting codeine AdvReac Nausea & Verified 04/06/25 09:28 Vomiting erythromycin base AdvReac Unknown Verified 04/06/25 09:28 hydrocodone [From Vicodin] AdvReac Nausea & Verified 04/06/25 09:28 Vomiting methylprednisolone AdvReac Unknown Verified 04/06/25 09:28 procaine [From Novocain] AdvReac Unknown Verified 04/06/25 09:28 Physical Exam Vitals: Vital Signs Temp Pulse Resp BP Pulse Ox 04/06/25 09:30 52 L 21 181/78 100 04/06/25 08:00 56 L 16 181/79 100 04/06/25 07:31 97 04/06/25 05:00 78 18 154/74 97 04/06/25 03:48 81 16 154/61 97 04/06/25 02:55 79 20 185/82 97 04/06/25 00:04 60 20 191/82 98 04/05/25 21:43 56 L 18 192/81 96 04/05/25 20:11 97.2 F L 55 L 18 196/88 95 Intake and Output 04/05/25 04/06/25 04/06/25 22:59 06:59 14:59 Other: Weight 58.967 kg Results CBC & Chem 7: 04/06/25 06:00 04/06/25 06:00 Labs: Abnormal Lab Results - Last 24 Hours (Table) 04/05/25 04/05/25 04/05/25 Range/Units 23:00 23:00 23:00 WBC 11.88 H (4.50-10.00) 10*3/uL RBC 3.98 L (4.10-5.20) 10*6/uL Hgb (12.0-15.0) g/dL Hct (37.2-46.3) % Immature Gran # 0.07 H (0.00-0.04) 10*3/uL Neutrophils # 10.22 H (1.80-7.70) 10*3/uL Lymphocytes # 0.86 L (0.90-5.00) 10*3/uL Eosinophils # (0.04-0.35) 10*3/uL APTT 19.3 L (22.0-30.0) sec Sodium (137-145) mmol/L Glucose 121 H (74-99) mg/dL Total Protein (6.3-8.2) g/dL 04/06/25 04/06/25 Range/Units 06:00 06:00 WBC (4.50-10.00) 10*3/uL RBC 3.78 L (4.10-5.20) 10*6/uL Hgb 11.5 L (12.0-15.0) g/dL Hct 35.6 L (37.2-46.3) % Immature Gran # (0.00-0.04) 10*3/uL Neutrophils # (1.80-7.70) 10*3/uL Lymphocytes # (0.90-5.00) 10*3/uL Eosinophils # 0.03 L (0.04-0.35) 10*3/uL APTT (22.0-30.0) sec Sodium 136 L (137-145) mmol/L Glucose 114 H (74-99) mg/dL Total Protein 5.9 L (6.3-8.2) g/dL
--- NOTE | 2025-04-06 16:56 | P.GSHP ---
History of Present Illness Patient is a 84-year-old female with past medical history significant for hyperlipidemia presented the ER after a fall. Patient stated that she was all right last night when she walking in her house when she lost her balance ended up having a ground-level mechanical fall. Patient did not lose her consciousness. Patient denies any trauma to her head. Denies any jerking movement of any extremity. There is no complaint of weakness of any extremity. Following fall patient started complaining of back pain and neck pain. There is no complaint of shortness of breath. Patient denies any palpitation. There is no complaint of orthopnea or PND. Denies any nausea, vomiting abdominal pain. Patient denies any complaint of dizziness. There is no complaint of headache. Because of fall, patient was brought to the ER - Constitutional Constitutional: Denies as per HPI, Denies anorexia, Denies chills, Denies chronic headaches, Denies chronic pain, Denies daytime sleepiness, Denies fatig ue, Denies fever, Denies lethargy, Denies malaise, Denies night sweats, Denies poor appetite, Denies sweats, Denies weakness, Denies weight gain, Denies weight loss - EENT Ears, nose, mouth and throat: Denies as per HPI, Denies ant. neck pain, Denies bleeding gums, Denies dental pain, Denies dysphagia, Denies epistaxis, Denies headache, Denies hoarseness, Denies mouth pain, Denies nasal congestion, Denies nasal discharge, Denies neck fullness/pressure, Denies neck lump, Denies nose pain, Denies odynophagia, Denies post-nasal drip, Denies sinus pain, Denies sinus pressure, Denies swelling in mouth, Denies swelling in throat, Denies sore throat, Denies vertigo, Denies voice changes - Cardiovascular Cardiovascular: Reports chest pain - Respiratory Respiratory: Denies as per HPI, Denies congestion, Denies cough, Denies cough with sputum, Denies dyspnea, Denies excessive sputum, Denies hemoptysis, Denies home oxygen, Denies pain, Denies pain on inspiration, Denies pleurisy, Denies respiratory infections, Denies sleep apnea, Denies snoring, Denies wheezing - Gastrointestinal Gastrointestinal: Denies as per HPI, Denies abdominal pain, Denies belching, Denies bloating, Denies BRBPR, Denies change in bowel habits, Denies coffee ground emesis, Denies constipation, Denies diarrhea, Denies dyspepsia, Denies early satiety, Denies excessive gas, Denies heartburn, Denies hematemesis, Denies hematochezia, Denies indigestion, Denies jaundice, Denies lactose intolerance, Denies loss of appetite, Denies melena, Denies nausea, Denies vomi ting Past Medical History Past Medical History: Cancer, Hyperlipidemia Additional Past Medical History / Comment(s): skin cancer History of Any Multi-Drug Resistant Organisms: None Reported Past Surgical History: Hysterectomy, Joint Replacement Additional Past Surgical History / Comment(s): Cystocele repair, bunionectomy, nose cancer surgery, hip surgery Smoking Status: Never smoker Past Alcohol Use History: None Reported Past Drug Use History: None Reported Medications and Allergies Home Medications Medication Instructions Recorded Confirmed Type Escitalopram [Lexapro] 10 mg PO DAILY 04/06/25 04/06/25 History Omeprazole 40 mg PO DAILY 04/06/25 04/06/25 History Simvastatin [Zocor] 40 mg PO DAILY 04/06/25 04/06/25 History Allergies Allergy/AdvReac Type Severity Reaction Status Date / Time Penicillins Allergy Rash/Hives Verified 04/06/25 09:28 Sulfa (Sulfonamide Allergy Rash/Hives Verified 04/06/25 09:28 Antibiotics) temazepam [From Restoril] Allergy Unknown Verified 04/06/25 09:28 cephalexin [From Keflex] AdvReac Nausea & Verified 04/06/25 09:28 Vomiting codeine AdvReac Nausea & Verified 04/06/25 09:28 Vomiting erythromycin base AdvReac Unknown Verified 04/06/25 09:28 hydrocodone [From Vicodin] AdvReac Nausea & Verified 04/06/25 09:28 Vomiting methylprednisolone AdvReac Unknown Verified 04/06/25 09:28 procaine [From Novocain] AdvReac Unknown Verified 04/06/25 09:28 Surgical - Exam Osteopathic Statement: *. No significant issues noted on an osteopathic structural exam other than those noted in the History and Physical/Consult. Vital Signs Temp Pulse Resp BP Pulse Ox 97.2 F L 55 L 18 196/88 95 04/05/25 20:11 04/05/25 20:11 04/05/25 20:11 04/05/25 20:11 04/05/25 20:11 gen: nad heent: atraumatic, normocephalic, eyes perrla, oral mucoa moist, no neck masses cv: rrr chest: tender to palpation in right chest, thoravent in place to wall suction with no airleak pul: non labored breathing abd: soft, non distended, non tender to palpation, no guarding or rebound tenderness Results - Labs 04/06/25 06:00 04/06/25 06:00 Abnormal Lab Results - Last 24 Hours (Table) 04/05/25 04/05/25 04/05/25 Range/Units 23:00 23:00 23:00 WBC 11.88 H (4.50-10.00) 10*3/uL RBC 3.98 L (4.10-5.20) 10*6/uL Hgb (12.0-15.0) g/dL Hct (37.2-46.3) % Immature Gran # 0.07 H (0.00-0.04) 10*3/uL Neutrophils # 10.22 H (1.80-7.70) 10*3/uL Lymphocytes # 0.86 L (0.90-5.00) 10*3/uL Eosinophils # (0.04-0.35) 10*3/uL APTT 19.3 L (22.0-30.0) sec Sodium (137-145) mmol/L Glucose 121 H (74-99) mg/dL Total Protein (6.3-8.2) g/dL 04/06/25 04/06/25 Range/Units 06:00 06:00 WBC (4.50-10.00) 10*3/uL RBC 3.78 L (4.10-5.20) 10*6/uL Hgb 11.5 L (12.0-15.0) g/dL Hct 35.6 L (37.2-46.3) % Immature Gran # (0.00-0.04) 10*3/uL Neutrophils # (1.80-7.70) 10*3/uL Lymphocytes # (0.90-5.00) 10*3/uL Eosinophils # 0.03 L (0.04-0.35) 10*3/uL APTT (22.0-30.0) sec Sodium 136 L (137-145) mmol/L Glucose 114 H (74-99) mg/dL Total Protein 5.9 L (6.3-8.2) g/dL Diabetes panel 04/05/25 04/06/25 Range/Units 23:00 06:00 Sodium 138 136 L (137-145) mmol/L Potassium 4.1 4.5 (3.5-5.1) mmol/L Chloride 105 104 (98-107) mmol/L Carbon Dioxide 24 27 (22-30) mmol/L BUN 17 15 (7-17) mg/dL Creatinine 0.66 0.65 (0.52-1.04) mg/dL Glucose 121 H 114 H (74-99) mg/dL Calcium 9.1 9.1 (8.4-10.2) mg/dL AST 29 27 (14-36) U/L ALT 17 16 (4-34) U/L Alkaline Phosphatase 72 62 (38-126) U/L Total Protein 6.4 5.9 L (6.3-8.2) g/dL Albumin 4.0 3.7 (3.5-5.0) g/dL Calcium panel 04/05/25 04/06/25 Range/Units 23:00 06:00 Calcium 9.1 9.1 (8.4-10.2) mg/dL Phosphorus 3.4 3.7 (2.5-4.5) mg/dL Albumin 4.0 3.7 (3.5-5.0) g/dL Pituitary panel 04/05/25 04/06/25 Range/Units 23:00 06:00 Sodium 138 136 L (137-145) mmol/L Potassium 4.1 4.5 (3.5-5.1) mmol/L Chloride 105 104 (98-107) mmol/L Carbon Dioxide 24 27 (22-30) mmol/L BUN 17 15 (7-17) mg/dL Creatinine 0.66 0.65 (0.52-1.04) mg/dL Glucose 121 H 114 H (74-99) mg/dL Calcium 9.1 9.1 (8.4-10.2) mg/dL Adrenal panel 04/05/25 04/06/25 Range/Units 23:00 06:00 Sodium 138 136 L (137-145) mmol/L Potassium 4.1 4.5 (3.5-5.1) mmol/L Chloride 105 104 (98-107) mmol/L Carbon Dioxide 24 27 (22-30) mmol/L BUN 17 15 (7-17) mg/dL Creatinine 0.66 0.65 (0.52-1.04) mg/dL Glucose 121 H 114 H (74-99) mg/dL Calcium 9.1 9.1 (8.4-10.2) mg/dL Total Bilirubin 0.6 0.8 (0.2-1.3) mg/dL AST 29 27 (14-36) U/L ALT 17 16 (4-34) U/L Alkaline Phosphatase 72 62 (38-126) U/L Total Protein 6.4 5.9 L (6.3-8.2) g/dL Albumin 4.0 3.7 (3.5-5.0) g/dL Assessment and Plan Assessment: 84-year-old female with multiple right-sided rib fractures and associated pneumothorax status post Thora vent placement Review of chest x-ray reveals resolution of pneumothorax Will place to waterseal in a.m. pending chest x-ray Pain management with lidocaine patch, morphine, [place], one-time dose of Toradol Today's trauma standard requires patient's greater than 65 years old with multiple rib fractures should be monitored in the ICU Time with Patient: Greater than 30
[2025-04-06] MEDS: HYDROcodone/APAP 5-325MG 1 EACH TAB PO PRN (18:44)
[2025-04-07] MEDS: PANTOPRAZOLE 40 MG TABLET PO SCH (07:45)
[2025-04-07] MEDS: ATORVASTATIN 20 MG TAB PO SCH (07:45)
[2025-04-07] MEDS: LIDOCAINE 4% PATCH TOPICAL SCH (09:27)
[2025-04-07] MEDS: ONDANSETRON 4 MG/2 ML VIAL IVP PRN (10:31)
--- NOTE | 2025-04-07 12:45 | P.PN ---
Subjective Progress Note Date: 04/07/25 SURGICAL PROGRESS NOTE CHIEF COMPLAINT: Fall with multiple right rib fractures and pneumothorax HISTORY OF PRESENT ILLNESS: Patient complains of right rib pain. She is status Thora vent in place. She is on room air satting at 95%. Patient denies any abdominal pain. She had clear liquids for breakfast and tolerated. She is requesting advancement of diet. Afebrile. WBC 7.67 PHYSICAL EXAM: VITAL SIGNS: Reviewed. GENERAL: Well-developed in no acute distress. HEENT: No sclera icterus. Extraocular movements grossly intact. Moist buccal mucosa. Head is atraumatic, normocephalic. CHEST: Right Thora vent in place. Tenderness to palpation right chest ABDOMEN: Soft. Nondistended. Nontender. NEUROLOGIC: Alert and oriented. Cranial nerves II through XII grossly intact. ASSESSMENT: 1. Fall with multiple right-sided rib fractures and associated pneumothorax status post Thora vent placement PLAN: - Continue pain management. Adjust [place] to every 4 hours as needed for pain. Resume Lidoderm patch - Awaiting pain management evaluation - PT OT on consult - Advance diet to regular - Encourage incentive spirometer use - ThoraVent management per pulmonary service - GI prophylaxis Protonix and DVT prophylaxis Lovenox 30 mg subcu bid Physician Nail Kegger note has been reviewed by physician. Signing provider agrees with the documented findings, assessment, and plan of care. Attestation Patient seen and examined at bedside. Chief complaint of fall with multiple right-sided rib fractures and pneumothorax. Status post Thora vent placement. Continue analgesia. Patient not complaining of any shortness of breath at this time. Patient continues to have apical pneumothorax and consultation placed for cardiothoracic surgery for further evaluation and recommendations. Continue pulmonary recommendations. PT and OT. Jenifer Farrar DO Objective - Vital Signs Vital signs: Vital Signs Temp 98.2 F 04/07/25 11:11 Pulse 54 L 04/07/25 11:11 Resp 16 04/07/25 11:11 BP 146/58 04/07/25 11:11 Pulse Ox 93 L 04/07/25 11:11 FiO2 21 04/07/25 07:50 Intake & Output 04/06/25 04/07/25 04/07/25 18:59 06:59 18:59 Intake Total 240 700 Output Total 300 20 Balance -300 220 700 Weight 58.967 kg 58.5 kg Intake: IV 10 Invasive Line 1 10 Oral 240 690 Output: Chest Tube Drainage 0 20 Thora-Vent 0 20 Urine 300 Other: Voiding Method External Catheter External Catheter # Voids 1 - Labs CBC & Chem 7: 04/06/25 06:00 04/06/25 06:00
--- NOTE | 2025-04-07 14:11 | P.PN ---
Subjective Progress Note Date: 04/07/25 patient is a 84-year-old female with past medical history significant for hyperlipidemia presented the ER after a fall. Patient stated that she was all right last night when she walking in her house when she lost her balance ended up having a ground-level mechanical fall. Patient did not lose her consci ousness. Patient denies any trauma to her head. Denies any jerking movement of any extremity. There is no complaint of weakness of any extremity. Following fall patient started complaining of back pain and neck pain. There is no complaint of shortness of breath. Patient denies any palpitation. There is no complaint of orthopnea or PND. Denies any nausea, vomiting abdominal pain. Patient denies any complaint of dizziness. There is no complaint of headache. Because of fall, patient was brought to the ER Initial lab work done in the ER showed WBC 11.88, hemoglobin 12.1, platelet count 227, sodium 138, potassium 4.1, BUN 17, creatinine 0.66, glucose 121, lactate 1.4 calcium 9.1, AST 29, ALT 17, troponin 0.015 EKG done in the ER showed heart rate of 59 , no ST segment elevation or de pression seen, no T-wave inversions seen. Chest x-ray done in the ER showed no acute cardiopulmonary process X-ray of the pelvis done showed mildly displaced fracture of the right transverse process of L5 Lumbar x-ray done showed slightly displaced fracture of the right transverse process of L5 CT head done showed no acute intracranial process CT cervical spine done showed no evidence of subluxation or fracture of the cervical spine X-ray shoulder done showed no acute fractures CT chest done showed comminuted mildly displaced acute fractures involving the right lateral 6th, 7th and 8th ribs with moderate right-sided pneumothorax Patient admitted to internal medicine service 04/07. Patient seen and examined. Labs done showed WBC 7.67, hemoglobin 11.5, platelet count 196, sodium 130, potassium 4.5, BUN 15, creatinine 0.65 glucose 114. Last chest x-ray done on 04/06 showed resolution of pneumothorax Still has chest tube in place. States she feels much better. REVIEW OF SYSTEMS: CONSTITUTIONAL: No fever, no malaise,. CARDIOVASCULAR: No chest pain, no palpitations, no syncope. PULMONARY: No shortness of breath, no cough, GASTROINTESTINAL: No diarrhea, no nausea, no vomiting, no abdominal pain. NEUROLOGICAL: No headaches, no weakness, PHYSICAL EXAMINATION: GENERAL: The patient is alert and oriented x3, ill looking HEENT: Pupils are round and equally reacting to light. EOMI. No scleral icterus. No conjunctival pallor. Normocephalic, atraumatic. No pharyngeal erythema. No t hyromegaly. CARDIOVASCULAR: S1 and S2 present. No murmurs, rubs, or gallops. PULMONARY: Chest is clear to auscultation, no wheezing or crackles. Right-sided Thora vent seen ABDOMEN: Soft, nontender, nondistended, normoactive bowel sounds. No palpable organomegaly. MUSCULOSKELETAL: No joint swelling or deformity. EXTREMITIES: No cyanosis, clubbing, or pedal edema. NEUROLOGICAL: Gross neurological examination did not reveal any focal deficits. SKIN: No rashes. Assessment and plan Ground-level fall Fracture of right 6 7th and 8th ribs Right-sided pneumothorax Pulmonary contusion acute fracture of the L1 superior endplate with mild vertebral body height loss Subcutaneous emphysema History of hyperlipidemia Depression Monitor vital signs Monitor CBC Monitor CMP Continue telemetry monitoring Continue oxygen supplementation Aggressive bronchopulmonary hygiene Continue breathing treatments Continue chest tube management per pulmonology Continue pain management Surgery following Labs and medication were reviewed.. Continue same treatment. Continue with symptomatic treatment. Resume home medication. Monitor labs and vitals. DVT and GI prophylaxis. Further recommendations as per clinical course of the patient Dictation was produced using [employer] dictation software. please excuse any grammatical, word or spelling errors. Objective - Vital Signs Vital signs: Vital Signs Temp 98.2 F 04/07/25 11:11 Pulse 54 L 04/07/25 11:11 Resp 16 04/07/25 11:11 BP 146/58 04/07/25 11:11 Pulse Ox 93 L 04/07/25 11:11 FiO2 21 04/07/25 07:50 Intake & Output 04/06/25 04/07/25 04/07/25 18:59 06:59 18:59 Intake Total 240 700 Output Total 300 20 Balance -300 220 700 Weight 58.967 kg 58.5 kg Intake: IV 10 Invasive Line 1 10 Oral 240 690 Output: Chest Tube Drainage 0 20 Thora-Vent 0 20 Urine 300 Other: Voiding Method External Catheter External Catheter # Voids 1 - Labs CBC & Chem 7: 04/06/25 06:00 04/06/25 06:00
--- NOTE | 2025-04-07 14:29 | XR ---
EXAMINATION TYPE: XR chest 1V DATE OF EXAM: 04/07/2025 2:18 PM COMPARISON: 04/06/2025 CLINICAL INDICATION: Female, 84 years old with history of PTX, pneumothorax TECHNIQUE: XR chest 1V view(s) obtained. FINDINGS: The heart size is normal. The pulmonary vasculature is normal. There is a right apical pneumothorax. Right-sided chest tube is present. A small right apical pneumo thorax appears slightly larger than the comparison. Patient's right rib fractures evident. Some fluid at the right base related to hemothorax IMPRESSION: 1. Small right apical pneumothorax, increased in size from comparison. 2. Developing small right pleural fluid can be pneumothorax. [facility], , 04/07/2025 2:26 PM
--- NOTE | 2025-04-07 17:13 | P.PN ---
Subjective Progress Note Date: 04/07/25 This is an 84-year-old female patient with a known history of hyperlipidemia who presented to the emergency room last evening 1 hour after sustaining a ground- level fall. She was complaining of head neck right sided chest and back pain. Right shoulder pain. CT scan of the brain and C-spine revealed no evidence of fractures. CT scan of the chest revealed comminuted mildly displaced acute fractures involving the right lateral 6th, 7th and 8th ribs with associated moderate size right pneumothorax. Groundglass and consolidative changes involving the right lung suggestive of pulmonary contusions. Acute fracture of the L1 superior endplate with mild vertebral body height loss. Extensive subcutaneous emphysema throughout the right chest wall. Lumbar spine, pelvis, right shoulder x-rays all revealed no evidence of fracture. A right sided Thora vent catheter was placed in the emergency department. Follow-up chest x-ray reveals no sizable pneumothorax. She is seen today in consultation in the emergency department. She is currently resting on a stretcher. Awake and alert in no acute distress. Maintaining O2 saturations in the 90s on 3 L/min per nasal cannula. Right sided Thora vent catheter to be placed to Pleur-evac and wall suction. White count 7.6. Hemoglobin 11.5. Platelets 196. Sodium 136. Potassium 4.5. Bicarb 27. BUN 15. Creatinine 0.65. Glucose 114. She is on D 5W and half-normal saline at 60 mL/h. Receiving morphine for pain control. On 04/07/2025, patient is being seen for a follow-up. The patient is being treated for a traumatic right-sided pneumothorax and multiple right-sided rib fractures following a fall. The patient has acute fractures of the right lateral sixth seventh eighth rib and the patient presented with a moderate-sized right-sided pneumothorax for which a Thora vent was inserted. At this point in time, the Thora vent is attached to a waterseal and repeat chest x-ray shows a very tiny right apical pneumothorax and small right-sided pleural effusion. The patient's main issue continues to be pain and she grades her pain to be 5 out of 10 in severity. She is on 2 L of oxygen nasal cannula with pulse ox of 97%. Hemodynamically stable. Denies having any other specific complaints. She is on D5 half-normal saline at a rate of 60 cc an hour. She is on lidocaine patch, receiving morphine on a as needed basis and she is also on [place] 5. The white cell count 7.6, hemoglobin 9.5 with a platelet count of 196. Electrolytes are all within normal limits. No other significant vents overnight. She is resting comfortably in bed. Objective - Vital Signs Vital signs: Vital Signs Temp 98.2 F 04/07/25 11:11 Pulse 54 L 04/07/25 11:11 Resp 16 04/07/25 11:11 BP 146/58 04/07/25 11:11 Pulse Ox 93 L 04/07/25 11:11 FiO2 21 04/07/25 07:50 Intake & Output 04/06/25 04/07/25 04/07/25 18:59 06:59 18:59 Intake Total 240 700 Output Total 300 20 Balance -300 220 700 Weight 58.967 kg 58.5 kg Intake: IV 10 Invasive Line 1 10 Oral 240 690 Output: Chest Tube Drainage 0 20 Thora-Vent 0 20 Urine 300 Other: Voiding Method External Catheter External Catheter # Voids 1 - Exam GENERAL EXAM: Alert, frail 84-year-old female, on 2 L nasal cannula, fairly comfortable in no apparent distress. HEAD: Normocephalic. EYES: Normal reaction of pupils, equal size. NOSE: Clear with pink turbinates. THROAT: No erythema or exudates. NECK: No masses, no JVD. CHEST: No chest wall deformity. Right sided Thora vent catheter in place to Pleur-evac to waterseal. LUNGS: Equal air entry with crackles in the right lung base. CVS: S1 and S2 normal with no audible murmur, regular rhythm. ABDOMEN: No hepatosplenomegaly, normal bowel sounds, no guarding or rigidity. SPINE: No scoliosis or deformity SKIN: No rashes CENTRAL NERVOUS SYSTEM: No focal deficits, tone is normal in all 4 extremities. EXTREMITIES: There is no peripheral edema. No clubbing, no cyanosis. Peripheral pulses are intact. - Labs CBC & Chem 7: 04/06/25 06:00 04/06/25 06:00 Assessment and Plan Plan: Trauma secondary to ground-level fall with comminuted mildly displaced acute fractures involving the right lateral 6th, 7th and 8th ribs with associated moderate-sized right pneumothorax. [place]glass and consolidative changes involving the residual right lung suggestive of a pulmonary contusion. Extensive subcutaneous emphysema throughout the right chest wall. Status post Thora vent placement. Chest x-ray on 04/07/2025 shows questionable right apical pneumothorax. No evidence of any air leak and the patient is attached to a waterseal. Right shoulder, hip and back pain secondary to fall. No evidence of fractures Hyperlipidemia Gastroesophageal reflux disease Lifelong non-smoker Plan: Keep the patient on O2 at 2 L nasal cannula Right sided Thora vent remains in place Repeat chest x-ray in the morning Keep the patient's Pleur-evac to waterseal Educated regarding the use of the incentive spirometer Continue bronchodilator Titrate down the FiO2 as tolerated Assure adequate pain control Increase her activity as tolerated We will continue to follow and make further recommendations based on her clinical status Time with Patient: Greater than 30
[2025-04-07] MEDS: HYDROcodone/APAP 5-325MG 1 EACH TAB PO PRN (17:18)
[2025-04-07] MEDS: ENOXAPARIN 30 MG/0.3 ML SYRINGE SQ SCH (20:22)
--- NOTE | 2025-04-08 06:59 | XR ---
EXAMINATION TYPE: XR chest 1V portable DATE OF EXAM: 04/08/2025 6:53 AM COMPARISON: 04/07/2023 CLINICAL INDICATION: Female, 84 years old with history of Pneumothorax, TECHNIQUE: XR chest 1V portable view(s) obtained. FINDINGS: The heart size is normal. The pulmonary vasculature is normal. Right apical pneumothorax has diminished in size. Minimal residual remains at the apex. Right-sided c hest tube remains present. There is blunting of bilateral costophrenic angles. Small effusions may be present IMPRESSION: 1. Diminished size of a right apical pneumothorax with minimal residual. Right-sided chest tube remai ns present. 2. Minimal bilateral pleural fluid collections [facility], , 04/08/2025 6:56 AM
--- NOTE | 2025-04-08 10:06 | P.GSCN ---
History of Present Illness Consult date: 04/08/25 Reason for Consult: Pneumothorax after rib fracture Requesting physician: Breann Hobbs History of present illness: This is an 84-year-old female who has a previous medical history of hyperlipidemia. She presented to [facility] emergency room after a fall at home resulting in chest pain. She was found to have right sided rib fractures and pneumothorax on CT scan. A Thora vent was placed by the emergency room physician and she was admitted for evaluation and treatment. She was seen by pulmonology as well as trauma services, Thora-vent has been continue to [facility] for the last several days. Consultation was placed to cardiothoracic surgery for management of pneumothorax/rib fractures and Thora-vent. Review of Systems Review of systems was completed and was negative except as noted - Cardiovascular Reports chest pain, Reports shortness of breath Past Medical History Past Medical History: Cancer, Hyperlipidemia Additional Past Medical History / Comment(s): skin cancer History of Any Multi-Drug Resistant Organisms: None Reported Past Surgical History: Hysterectomy, Joint Replacement Additional Past Surgical History / Comment(s): Cystocele repair, bunionectomy, nose cancer surgery, hip surgery Smoking Status: Never smoker Past Alcohol Use History: None Reported Past Drug Use History: None Reported Medications and Allergies Home Medications Medication Instructions Recorded Confirmed Type Escitalopram [Lexapro] 10 mg PO DAILY 04/06/25 04/06/25 History Omeprazole 40 mg PO DAILY 04/06/25 04/06/25 History Simvastatin [Zocor] 40 mg PO DAILY 04/06/25 04/06/25 History Allergies Allergy/AdvReac Type Severity Reaction Status Date / Time Penicillins Allergy Rash/Hives Verified 04/06/25 09:28 Sulfa (Sulfonamide Allergy Rash/Hives Verified 04/06/25 09:28 Antibiotics) temazepam [From Restoril] Allergy Unknown Verified 04/06/25 09:28 cephalexin [From Keflex] AdvReac Nausea & Verified 04/06/25 09:28 Vomiting codeine AdvReac Nausea & Verified 04/06/25 09:28 Vomiting erythromycin base AdvReac Unknown Verified 04/06/25 09:28 hydrocodone [From Vicodin] AdvReac Nausea & Verified 04/06/25 09:28 Vomiting methylprednisolone AdvReac Unknown Verified 04/06/25 09:28 procaine [From Novocain] AdvReac Unknown Verified 04/06/25 09:28 Surgical - Exam Vital Signs Temp Pulse Resp BP Pulse Ox 97.2 F L 55 L 18 196/88 95 04/05/25 20:11 04/05/25 20:11 04/05/25 20:11 04/05/25 20:11 04/05/25 20:11 CONSTITUTIONAL: Awake and alert, appears mostly comfortable, cooperative, well- developed, well-nourished, no pain, no acute distress EYES: Pupils equal, round, reactive to light, normal ocular movement ENT: Moist mucous membranes without oral lesions present NECK: No masses, no bruits, trachea midline RESPIRATORY: Lungs sounds diminished bilaterally. Respirations even, nonlabored. Currently on 2 L nasal cannula with oxygen saturation 94%. Weak cough. Right sided Thora-vent present to waterseal, no airleak present CARDIOVASCULAR: S1, S2 present. Regular rate and rhythm, sinus rhythm on telemetry. Palpable peripheral pulses bilaterally. No edema present GASTROINTESTINAL: Abdomen soft, nontender, nondistended without masses or organomegaly noted. There is no rebound or guarding present. Active bowel sounds present 4 quadrants. GENITOURINARY: Deferred INTEGUMENTARY: Skin is warm and dry NEUROLOGIC: Cranial nerves II through XII intact, normal coordination, no obvious motor or sensory deficits, speech is normal MUSKULOSKELETAL: Able to move all extremities, strength equal bilaterally, normal posture PSYCHIATRIC: Alert and oriented to person place and time, appropriate affect, intact judgment and insight Results - Labs 04/06/25 06:00 04/06/25 06:00 - Imaging Chest x-ray: report reviewed, image reviewed CT scan - chest: report reviewed, image reviewed Assessment and Plan Assessment: Right-sided rib fractures, pneumothorax, status post Thora-vent placement Status post fall from standing at home Chest pain secondary to above History of hyperlipidemia GERD Lifelong non-smoker Plan: The patient was seen and examined yesterday and this morning sitting up in bed in no acute distress although she does state that she has some chest discomfort due to fall and Thora-vent. Remains in sinus rhythm, currently on 2 L nasal cannula. Right sided Thora-vent present to waterseal, no airleak present. Hope st x-ray reviewed. Discussed with Dr. Cohen and Dr. Echols. Will discontinue Thora-vent. Patient may be discharged home from our standpoint when okay with other services. No surgical intervention warranted. Medical management of other comorbidities per trauma services. Thank you for this consult. Please call us with any further questions. I have personally seen and examined the patient, performed the documentation and the assessment and plan as written. Number of minutes spent on the visit: 30. Hollie Bustamante, FRAN-C
[2025-04-08] MEDS ORDERED: DEXAMETHASONE SOD PHOSPHATE 10 MG/ML 1 ML VIAL ONE (11:05)
[2025-04-08] MEDS ORDERED: ROPIVACAINE 5MG/ML 20ML VIAL ONE (11:05)
--- NOTE | 2025-04-08 12:23 | P.PCN ---
Date of Procedure: 04/08/25 Preoperative Diagnosis: Right chest wall pain due to rib fractures Postoperative Diagnosis: Same as above Procedure(s) Performed: Right erector spinae block Anesthesia: local (Lidocaine 1% 2 mL) Surgeon: Stevie Leyva Pathology: none sent Condition: stable Disposition: no change Description of Procedure: The patient has right rib fractures 4 ribs #6 7 and 8 with pneumothorax and chest tube which was taken out this morning due to absence of a leak. Severe pain in the right chest wall area with skin bruising on the right side of her chest wall. The patient assumed sitting position with difficulty due to her pain. Skin was prepped with ChloraPrep and lidocaine 1% was used to numb the skin entry site using 25-gauge needle. I then used the 50 mL 21-gauge block needle to go with ultrasound guidance to touch the edge of the transverse process of the vertebra T7. After negative aspiration I injected 20 mL of ropivacaine 0.25% with 5 mg of Decadron incrementally. Patient tolerated procedure well. Patient was placed in the supine position after finishing the procedure and cleaning the skin up. Band-Aid was placed at the skin entry site. Patient tolerated procedure well. The patient is to continue her oral pain medications as prescribed by her primary care team. She can resume her Lovenox 12 hours from now. I thank you for the consultation
--- NOTE | 2025-04-08 12:45 | P.PN ---
Subjective Progress Note Date: 04/08/25 patient is a 84-year-old female with past medical history significant for hyperlipidemia presented the ER after a fall. Patient stated that she was all right last night when she walking in her house when she lost her balance ended up having a ground-level mechanical fall. Patient did not lose her consci ousness. Patient denies any trauma to her head. Denies any jerking movement of any extremity. There is no complaint of weakness of any extremity. Following fall patient started complaining of back pain and neck pain. There is no complaint of shortness of breath. Patient denies any palpitation. There is no complaint of orthopnea or PND. Denies any nausea, vomiting abdominal pain. Patient denies any complaint of dizziness. There is no complaint of headache. Because of fall, patient was brought to the ER Initial lab work done in the ER showed WBC 11.88, hemoglobin 12.1, platelet count 227, sodium 138, potassium 4.1, BUN 17, creatinine 0.66, glucose 121, lactate 1.4 calcium 9.1, AST 29, ALT 17, troponin 0.015 EKG done in the ER showed heart rate of 59 , no ST segment elevation or de pression seen, no T-wave inversions seen. Chest x-ray done in the ER showed no acute cardiopulmonary process X-ray of the pelvis done showed mildly displaced fracture of the right transverse process of L5 Lumbar x-ray done showed slightly displaced fracture of the right transverse process of L5 CT head done showed no acute intracranial process CT cervical spine done showed no evidence of subluxation or fracture of the cervical spine X-ray shoulder done showed no acute fractures CT chest done showed comminuted mildly displaced acute fractures involving the right lateral 6th, 7th and 8th ribs with moderate right-sided pneumothorax Patient admitted to internal medicine service 04/07. Patient seen and examined. Labs done showed WBC 7.67, hemoglobin 11.5, platelet count 196, sodium 130, potassium 4.5, BUN 15, creatinine 0.65 glucose 114. Last chest x-ray done on 04/06 showed resolution of pneumothorax Still has chest tube in place. States she feels much better. 04/08. Patient seen examined. Thora vent was discontinued this morning. Still having rib pain, pain management did right erector spinae nerve block REVIEW OF SYSTEMS: CONSTITUTIONAL: No fever, no malaise,. CARDIOVASCULAR: No chest pain, no palpitations, no syncope. PULMONARY: No shortness of breath, no cough, GASTROINTESTINAL: No diarrhea, no nausea, no vomiting, no abdominal pain. NEUROLOGICAL: No headaches, no weakness, PHYSICAL EXAMINATION: GENERAL: The patient is alert and oriented x3, ill looking HEENT: Pupils are round and equally reacting to light. EOMI. No scleral icterus. No conjunctival pallor. Normocephalic, atraumatic. No pharyngeal erythema. No thyromegaly. CARDIOVASCULAR: S1 and S2 present. No murmurs, rubs, or gallops. PULMONARY: Chest is clear to auscultation, no wheezing or crackles. Right-sided Thora vent seen ABDOMEN: Soft, nontender, nondistended, normoactive bowel sounds. No palpable organomegaly. MUSCULOSKELETAL: No joint swelling or deformity. EXTREMITIES: No cyanosis, clubbing, or pedal edema. NEUROLOGICAL: Gross neurological examination did not reveal any focal deficits. SKIN: No rashes. Assessment and plan Ground-level fall Fracture of right 6 7th and 8th ribs Right-sided pneumothorax Pulmonary contusion acute fracture of the L1 superior endplate with mild vertebral body height loss Subcutaneous emphysema History of hyperlipidemia Depression Monitor vital signs Monitor CBC Monitor CMP Continue telemetry monitoring Continue oxygen supplementation Aggressive bronchopulmonary hygiene Continue breathing treatments Thora vent was discontinued today. Continue pain management Status post nerve block for rib pain Surgery following PT OT recommended rehab Labs and medication were reviewed.. Continue same treatment. Continue with symptomatic treatment. Resume home medication. Monitor labs and vitals. DVT and GI prophylaxis. Further recommendations as per clinical course of the patient Dictation was produced using [employer] dictation software. please excuse any grammatical, word or spelling errors. Objective - Vital Signs Vital signs: Vital Signs Temp 98.6 F 04/08/25 11:41 Pulse 60 04/08/25 11:41 Resp 20 04/08/25 11:41 BP 161/65 04/08/25 12:15 Pulse Ox 96 04/08/25 11:41 FiO2 21 04/07/25 07:50 Intake & Output 04/07/25 04/08/25 04/08/25 18:59 06:59 18:59 Intake Total 1010 20 250 Output Total 700 0 200 Balance 310 20 50 Weight 59 kg Intake: IV 20 20 10 Invasive Line 1 10 Invasive Line 2 10 20 10 Oral 990 240 Output: Chest Tube Drainage 0 0 0 Thora-Vent 0 0 0 Urine 700 200 Other: Voiding Method External Catheter External Catheter External Catheter # Voids 1 - Labs CBC & Chem 7: 04/06/25 06:00 04/06/25 06:00
--- NOTE | 2025-04-08 14:49 | P.PN ---
Subjective Progress Note Date: 04/08/25 SURGICAL PROGRESS NOTE CHIEF COMPLAINT: Fall with multiple right rib fractures and pneumothorax HISTORY OF PRESENT ILLNESS: Patient lying in bed comfortably this morning. She is scheduled for a block with pain service. Chest x-ray reported diminished size of right apical pneumothorax with minimal residual. Minimal bilateral pleural fluid collections. Patient is on 2 L satting at 94%. She denies any new pain. She is having flatus. Denies any bowel movement. Patient seen by cardiothoracic team. They are recommending to discontinue the Thora vent and can be discharged from their standpoint. Physical therapy recommended subacute rehab. Per major case detective patient would like to go home at time of discharge. PHYSICAL EXAM: VITAL SIGNS: Reviewed. GENERAL: Well-developed in no acute distress. HEENT: No sclera icterus. Extraocular movements grossly intact. Moist buccal mucosa. Head is atraumatic, normocephalic. CHEST: Right Thora vent in place. Tenderness to palpation right chest ABDOMEN: Soft. Nondistended. Nontender. NEUROLOGIC: Alert and oriented. Cranial nerves II through XII grossly intact. ASSESSMENT: 1. Fall with multiple right-sided rib fractures and associated pneumothorax status post Thora vent placement 2. Acute fracture of the L1 superior endplate with mild vertebral body height loss 3. mildly displaced fracture of the transverse process of L5 4. Right lung pulmonary contusion PLAN: - Consult orthospine for acute fracture of L1 and mildly displaced fracture of the transverse process of L5 - Continue pain management - Continue incentive spirometer - Colace added for constipation - GI prophylaxis Protonix and DVT prophylaxis Lovenox 30 mg subcu bid Physician Childhood Teacher note has been reviewed by physician. Signing provider agrees with the documented findings, assessment, and plan of care. Objective - Vital Signs Vital signs: Vital Signs Temp 98.6 F 04/08/25 11:41 Pulse 60 04/08/25 11:41 Resp 20 04/08/25 11:41 BP 161/65 04/08/25 12:15 Pulse Ox 96 04/08/25 11:41 FiO2 21 04/07/25 07:50 Intake & Output 04/07/25 04/08/25 04/08/25 18:59 06:59 18:59 Intake Total 1010 20 250 Output Total 700 0 200 Balance 310 20 50 Weight 59 kg Intake: IV 20 20 10 Invasive Line 1 10 Invasive Line 2 10 20 10 Oral 990 240 Output: Chest Tube Drainage 0 0 0 Thora-Vent 0 0 0 Urine 700 200 Other: Voiding Method External Catheter External Catheter External Catheter # Voids 1 - Labs CBC & Chem 7: 04/06/25 06:00 04/06/25 06:00
--- NOTE | 2025-04-08 14:50 | P.PN ---
Subjective Progress Note Date: 04/08/25 This is an 84-year-old female patient with a known history of hyperlipidemia who presented to the emergency room last evening 1 hour after sustaining a ground- level fall. She was complaining of head neck right sided chest and back pain. Right shoulder pain. CT scan of the brain and C-spine revealed no evidence of fractures. CT scan of the chest revealed comminuted mildly displaced acute fractures involving the right lateral 6th, 7th and 8th ribs with associated moderate size right pneumothorax. Groundglass and consolidative changes involving the right lung suggestive of pulmonary contusions. Acute fracture of the L1 superior endplate with mild vertebral body height loss. Extensive subcutaneous emphysema throughout the right chest wall. Lumbar spine, pelvis, right shoulder x-rays all revealed no evidence of fracture. A right sided Thora vent catheter was placed in the emergency department. Follow-up chest x-ray reveals no sizable pneumothorax. She is seen today in consultation in the emergency department. She is currently resting on a stretcher. Awake and alert in no acute distress. Maintaining O2 saturations in the 90s on 3 L/min per nasal cannula. Right sided Thora vent catheter to be placed to Pleur-evac and wall suction. White count 7.6. Hemoglobin 11.5. Platelets 196. Sodium 136. Potassium 4.5. Bicarb 27. BUN 15. Creatinine 0.65. Glucose 114. She is on D 5W and half-normal saline at 60 mL/h. Receiving morphine for pain control. On 04/07/2025, patient is being seen for a follow-up. The patient is being treated for a traumatic right-sided pneumothorax and multiple right-sided rib fractures following a fall. The patient has acute fractures of the right lateral sixth seventh eighth rib and the patient presented with a moderate-sized right-sided pneumothorax for which a Thora vent was inserted. At this point in time, the Thora vent is attached to a waterseal and repeat chest x-ray shows a very tiny right apical pneumothorax and small right-sided pleural effusion. The patient's main issue continues to be pain and she grades her pain to be 5 out of 10 in severity. She is on 2 L of oxygen nasal cannula with pulse ox of 97%. Hemodynamically stable. Denies having any other specific complaints. She is on D5 half-normal saline at a rate of 60 cc an hour. She is on lidocaine patch, receiving morphine on a as needed basis and she is also on Fossil 5. The white cell count 7.6, hemoglobin 9.5 with a platelet count of 196. Electrolytes are all within normal limits. No other significant vents overnight. She is resting comfortably in bed. On 04/08/2025, a follow-up chest x-ray was done and the patient has no evidence of any pneumothorax. No evidence of any air leak while being on waterseal. Based on that, the Thora vent was discontinued this morning. This was coordinated with the cardiothoracic team. Meanwhile, the patient is still complaining of skeletal chest wall pain on the right. The patient is hemodynamically stable. She is receiving pain control. She has multiple right-sided rib fractures. The patient is hemodynamically stable. She denies having any other specific complaints. She remains on 2 L of oxygen by nasal cannula. No new labs are available from today. She is using the incentive spirometer and she is also on DuoNeb updrafts. She is on Fossil for pain control and receiving morphine on an as-needed basis. She also has a lidocaine patch. Objective - Vital Signs Vital signs: Vital Signs Temp 98.3 F 04/08/25 07:23 Pulse 60 04/08/25 07:23 Resp 16 04/08/25 07:23 BP 149/74 04/08/25 07:23 Pulse Ox 94 L 04/08/25 07:53 FiO2 21 04/07/25 07:50 Intake & Output 04/07/25 04/08/25 04/08/25 18:59 06:59 18:59 Intake Total 1010 20 10 Output Total 700 0 0 Balance 310 20 10 Weight 59 kg Intake: IV 20 20 10 Invasive Line 1 10 Invasive Line 2 10 20 10 Oral 990 Output: Chest Tube Drainage 0 0 0 Thora-Vent 0 0 0 Urine 700 Other: Voiding Method External Catheter External Catheter External Catheter - Exam CONSTITUTIONAL: Awake and alert, appears mostly comfortable, cooperative, well- developed, well-nourished, no pain, no acute distress EYES: Pupils equal, round, reactive to light, normal ocular movement ENT: Moist mucous membranes without oral lesions present NECK: No masses, no bruits, trachea midline RESPIRATORY: Lungs sounds diminished bilaterally. Respirations even, nonlabored. Currently on 2 L nasal cannula with oxygen saturation 94%. Weak cough. Right sided Thora-vent present to waterseal, no airleak present CARDIOVASCULAR: S1, S2 present. Regular rate and rhythm, sinus rhythm on telemetry. Palpable peripheral pulses bilaterally. No edema present GASTROINTESTINAL: Abdomen soft, nontender, nondistended without masses or organomegaly noted. There is no rebound or guarding present. Active bowel sounds present 4 quadrants. GENITOURINARY: Deferred INTEGUMENTARY: Skin is warm and dry NEUROLOGIC: Cranial nerves II through XII intact, normal coordination, no obvious motor or sensory deficits, speech is normal MUSKULOSKELETAL: Able to move all extremities, strength equal bilaterally, normal posture PSYCHIATRIC: Alert and oriented to person place and time, appropriate affect, intact judgment and insight - Labs CBC & Chem 7: 04/06/25 06:00 04/06/25 06:00 Assessment and Plan Plan: Trauma secondary to ground-level fall with comminuted mildly displaced acute fractures involving the right lateral 6th, 7th and 8th ribs with associated moderate-sized right pneumothorax. Groundglass and consolidative changes involving the residual right lung suggestive of a pulmonary contusion. Extensive subcutaneous emphysema throughout the right chest wall. Status post Thora vent placement. Chest x-ray on 04/08/2025 shows questionable right apical pneumothorax. No evidence of any air leak and the patient is attached to a waterseal. The chest tube/Thora vent was removed today. A follow-up chest x- ray to be done tomorrow. Right shoulder, hip and back pain secondary to fall. No evidence of fractures Hyperlipidemia Gastroesophageal reflux disease Lifelong non-smoker Plan: Keep the patient on O2 at 2 L nasal cannula Right sided Thora vent to be removed today Repeat chest x-ray in the morning Educated regarding the use of the incentive spirometer Continue bronchodilator Titrate down the FiO2 as tolerated Assure adequate pain control Increase her activity as tolerated We will continue to follow and make further recommendations based on her clinical status
[2025-04-08] MEDS: DOCUSATE 100 MG CAP PO SCH (19:56)
[2025-04-09 06:51] LABS: HCT 34.3 % (37.2-46.3); HGB 11.1 g/dL (12.0-15.0); MCH 30.7 pg (27.0-32.0); MCHC 32.4 g/dL (32.0-37.0); MCV 94.8 fL (80.0-97.0); Mean Platelet Volume 9.8 fL (9.5-12.2); Platelet Count 202 10*3/uL (140-440); RBC 3.62 10*6/uL (4.10-5.20); RDW 13.2 % (11.5-14.5); WBC 7.47 10*3/uL (4.50-10.00)
[2025-04-09 07:29] LABS: ALT 14 U/L (4-34); AST 22 U/L (14-36); African American GFR (CKD) 88 (>60 ml/min/1.73 sqM); Albumin 3.1 g/dL (3.5-5.0); Alkaline Phosphatase 71 U/L (38-126); Anion Gap 8 mmol/L; Blood Urea Nitrogen 13 mg/dL (7-17); Calcium 8.9 mg/dL (8.4-10.2); Carbon Dioxide 30 mmol/L (22-30); Chloride 97 mmol/L (98-107); Glucose 123 mg/dL (74-99); Non-African American GFR(CKD) 76 (>60 ml/min/1.73 sqM); Potassium 3.8 mmol/L (3.5-5.1); Sodium 135 mmol/L (137-145); Total Bilirubin 0.8 mg/dL (0.2-1.3); Total Protein 5.5 g/dL (6.3-8.2)
[2025-04-09] MEDS: ACETAMINOPHEN TAB 325 MG TAB PO PRN (07:48)
[2025-04-09] MEDS: KETOROLAC 15 MG/ML 1 ML VIAL IVP SCH (11:20)
--- NOTE | 2025-04-09 11:48 | P.CNOR ---
History of Present Illness - [facility] Consult date: 04/09/25 Consult reason: fracture History of present illness: Patient is an 84-year-old female who was brought to [facility] for evaluation on 04/05/2025 after sustaining a fall at home. Patient apparently lost her balance and fell onto her right side. Upon arrival to the hospital, multiple imaging and lab tests were obtained at that time. There is concern for multiple right-sided rib fractures., Concern for vertebral body compression fracture involving L1 and a transverse process fracture of L5. Patient is currently being followed by multiple medical specialties, orthopedic team was then consulted. Patient was evaluated at bedside today, she is resting sitting up in her hospital chair. She notes most of the pain on the right side of her ribs. She is getting some generalized low back pain with movement. She has been relatively nonambulatory since being in the hospital, they have got her up to the chair on a couple occasions. She has been utilizing a walker for assistance. She denies any loss of bowel or bladder function at this time. She denies any numbness or tingling to the bilateral lower extremities, genital or perineal region. She admits to a previous laminectomy many years ago. She also has a history of a right knee replacement and left total hip arthroplasty. She has no other orthopedic complaints at this time. Review of Systems Constitutional: Reports as per [facility] Past Medical History Past Medical History: Cancer, Hyperlipidemia Additional Past Medical History / Comment(s): skin cancer History of Any Multi-Drug Resistant Organisms: None Reported Past Surgical History: Hysterectomy, Joint Replacement Additional Past Surgical History / Comment(s): Cystocele repair, bunionectomy, nose cancer surgery, hip surgery Smoking Status: Never smoker Past Alcohol Use History: None Reported Past Drug Use History: None Reported Medications and Allergies Home Medications Medication Instructions Recorded Confirmed Type Escitalopram [Lexapro] 10 mg PO DAILY 04/06/25 04/06/25 History Omeprazole 40 mg PO DAILY 04/06/25 04/06/25 History Simvastatin [Zocor] 40 mg PO DAILY 04/06/25 04/06/25 History Allergies Allergy/AdvReac Type Severity Reaction Status Date / Time Penicillins Allergy Rash/Hives Verified 04/06/25 09:28 Sulfa (Sulfonamide Allergy Rash/Hives Verified 04/06/25 09:28 Antibiotics) temazepam [From Restoril] Allergy Unknown Verified 04/06/25 09:28 cephalexin [From Keflex] AdvReac Nausea & Verified 04/06/25 09:28 Vomiting codeine AdvReac Nausea & Verified 04/06/25 09:28 Vomiting erythromycin base AdvReac Unknown Verified 04/06/25 09:28 hydrocodone [From Vicodin] AdvReac Nausea & Verified 04/06/25 09:28 Vomiting methylprednisolone AdvReac Unknown Verified 04/06/25 09:28 procaine [From Novocain] AdvReac Unknown Verified 04/06/25 09:28 Physical Examination Gen: AOx3, NAD VSS stable at this time Integument: No open lesions or sores are visualized throughout the cervical, thoracic or lumbar spine Palpation: Patient does demonstrate some tenderness throughout the lumbar spine both midline and paraspinal region ROM: Full range of motion in all major muscle groups of the bilateral upper and lower extremities, no focal deficits appreciated Sensory Exam: Senory exam to light touch is intact C5-T1 Senosry exam to light touch is intact L2-S1 Motor: 4/5 strength appreciated the bilateral upper extremities with shoulder elevati on, shoulder abduction, elbow extension, elbow flexion, wrist extension, wrist flexion, plant maintenance mechanic 4/5 strength appreciate the bilateral lower extremities with hip flexion, knee extension, knee flexion, plantarflexion, dorsiflexion, EHL, FHL Reflexes: 2/4 in all UE and LE Negative Yony's bilaterally Negative clonus bilaterally Special Test: Negative straight leg raise bilaterally Negative logroll maneuver bilaterally Results - Labs Labs: Abnormal Lab Results - Last 24 Hours (Table) 04/09/25 04/09/25 Range/Units 05:57 05:57 RBC 3.62 L (4.10-5.20) 10*6/uL Hgb 11.1 L (12.0-15.0) g/dL Hct 34.3 L (37.2-46.3) % Sodium 135 L (137-145) mmol/L Chloride 97 L (98-107) mmol/L Glucose 123 H (74-99) mg/dL Total Protein 5.5 L (6.3-8.2) g/dL Albumin 3.1 L (3.5-5.0) g/dL H & H 04/05/25 04/06/25 04/09/25 Range/Units 23:00 06:00 05:57 Hgb 12.1 11.5 L 11.1 L (12.0-15.0) g/dL Hct 37.2 35.6 L 34.3 L (37.2-46.3) % Coagulation 04/05/25 Range/Units 23:00 INR 0.9 (<1.2) Result Diagrams: 04/09/25 05:57 04/09/25 05:57 - Diagnostic results Lumbar AP/lateral x-ray: report reviewed, image reviewed Assessment and Plan Assessment: Low back pain L1 VCF Multilevel lumbar spondylosis with varying degrees of stenosis Multiple right-sided rib fractures Status post fall from standing Other medical comorbidities Plan: Imaging: Report and images reviewed of the lumbar x-rays. Additional films have been ordered, this to include a lumbar CT without contrast Plan: I was able to discuss the case, this to include physical exam findings and imaging studies my attending Dr. Velasquez's and. We will await CT lumbar images to review. No emergent orthopedic spine surgery recommended at this time Conservative measures, this to include Tylenol, oral NSAIDs versus Toradol, low- dose muscle relaxer versus oral narcotic May consider LSO brace PT/OT evaluation Weight-bear as tolerated with walker GI and DVT prophylaxis per primary medical service Other specialty recommendations appreciated Further recommendations to follow Time with Patient: Less than 30
--- NOTE | 2025-04-09 13:40 | P.PN ---
Subjective Progress Note Date: 04/09/25 patient is a 84-year-old female with past medical history significant for hyperlipidemia presented the ER after a fall. Patient stated that she was all right last night when she walking in her house when she lost her balance ended up having a ground-level mechanical fall. Patient did not lose her consci ousness. Patient denies any trauma to her head. Denies any jerking movement of any extremity. There is no complaint of weakness of any extremity. Following fall patient started complaining of back pain and neck pain. There is no complaint of shortness of breath. Patient denies any palpitation. There is no complaint of orthopnea or PND. Denies any nausea, vomiting abdominal pain. Patient denies any complaint of dizziness. There is no complaint of headache. Because of fall, patient was brought to the ER Initial lab work done in the ER showed WBC 11.88, hemoglobin 12.1, platelet count 227, sodium 138, potassium 4.1, BUN 17, creatinine 0.66, glucose 121, lactate 1.4 calcium 9.1, AST 29, ALT 17, troponin 0.015 EKG done in the ER showed heart rate of 59 , no ST segment elevation or de pression seen, no T-wave inversions seen. Chest x-ray done in the ER showed no acute cardiopulmonary process X-ray of the pelvis done showed mildly displaced fracture of the right transverse process of L5 Lumbar x-ray done showed slightly displaced fracture of the right transverse process of L5 CT head done showed no acute intracranial process CT cervical spine done showed no evidence of subluxation or fracture of the cervical spine X-ray shoulder done showed no acute fractures CT chest done showed comminuted mildly displaced acute fractures involving the right lateral 6th, 7th and 8th ribs with moderate right-sided pneumothorax Patient admitted to internal medicine service 04/07. Patient seen and examined. Labs done showed WBC 7.67, hemoglobin 11.5, platelet count 196, sodium 130, potassium 4.5, BUN 15, creatinine 0.65 glucose 114. Last chest x-ray done on 04/06 showed resolution of pneumothorax Still has chest tube in place. States she feels much better. 04/08. Patient seen examined. Thora vent was discontinued this morning. Still having rib pain, pain management did right erector spinae nerve block 04/09. Patient seen and examined. No acute issues overnight REVIEW OF SYSTEMS: CONSTITUTIONAL: No fever, no malaise,. CARDIOVASCULAR: No chest pain, no palpitations, no syncope. PULMONARY: No shortness of breath, no cough, GASTROINTESTINAL: No diarrhea, no nausea, no vomiting, no abdominal pain. NEUROLOGICAL: No headaches, no weakness, PHYSICAL EXAMINATION: GENERAL: The patient is alert and oriented x3, ill looking HEENT: Pupils are round and equally reacting to light. EOMI. No scleral icterus. No conjunctival pallor. Normocephalic, atraumatic. No pharyngeal erythema. No thyromegaly. CARDIOVASCULAR: S1 and S2 present. No murmurs, rubs, or gallops. PULMONARY: Chest is clear to auscultation, no wheezing or crackles. Right-sided Thora vent seen ABDOMEN: Soft, nontender, nondistended, normoactive bowel sounds. No palpable organomegaly. MUSCULOSKELETAL: No joint swelling or deformity. EXTREMITIES: No cyanosis, clubbing, or pedal edema. NEUROLOGICAL: Gross neurological examination did not reveal any focal deficits. SKIN: No rashes. Assessment and plan Ground-level fall Fracture of right 6 7th and 8th ribs Right-sided pneumothorax Pulmonary contusion acute fracture of the L1 superior endplate with mild vertebral body height loss Subcutaneous emphysema History of hyperlipidemia Depression Monitor vital signs Monitor CBC Monitor CMP Continue telemetry monitoring Continue oxygen supplementation Aggressive bronchopulmonary hygiene Continue breathing treatments Thora vent was discontinued today. Continue pain management Status post nerve block for rib pain Surgery following PT OT recommended rehab Labs and medication were reviewed.. Continue same treatment. Continue with symptomatic treatment. Resume home medication. Monitor labs and vitals. DVT and GI prophylaxis. Further recommendations as per clinical course of the patient Dictation was produced using [employer] dictation software. please excuse any grammatical, word or spelling errors. Objective - Vital Signs Vital signs: Vital Signs Temp 98.5 F 04/09/25 07:32 Pulse 61 04/09/25 07:32 Resp 16 04/09/25 07:32 BP 156/73 04/09/25 07:32 Pulse Ox 97 04/09/25 07:32 FiO2 21 04/07/25 07:50 Intake & Output 04/08/25 04/09/25 04/09/25 18:59 06:59 18:59 Intake Total 490 330 Output Total 200 600 Balance 290 -600 330 Weight 60 kg Intake: IV 10 10 Invasive Line 2 10 10 Oral 480 320 Output: Chest Tube Drainage 0 Thora-Vent 0 Urine 200 600 Other: Voiding Method External Catheter External Catheter Bedside Commode External Catheter # Voids 2 1 # Bowel Movements 0 - Labs CBC & Chem 7: 04/09/25 05:57 04/09/25 05:57 Labs: Abnormal Lab Results - Last 24 Hours (Table) 04/09/25 04/09/25 Range/Units 05:57 05:57 RBC 3.62 L (4.10-5.20) 10*6/uL Hgb 11.1 L (12.0-15.0) g/dL Hct 34.3 L (37.2-46.3) % Sodium 135 L (137-145) mmol/L Chloride 97 L (98-107) mmol/L Glucose 123 H (74-99) mg/dL Total Protein 5.5 L (6.3-8.2) g/dL Albumin 3.1 L (3.5-5.0) g/dL
--- NOTE | 2025-04-09 14:26 | P.PN ---
Subjective Progress Note Date: 04/09/25 SURGICAL PROGRESS NOTE CHIEF COMPLAINT: Fall with multiple right rib fractures and pneumothorax HISTORY OF PRESENT ILLNESS: Patient is sitting at bedside chair. She does continue to report complaint of right-sided rib pain and did report some mild lower back pain. Thora vent was removed yesterday. She did get the pain block yesterday with no relief. Patient seen by orthopedic spinal service and CT scan of lumbar spine ordered. She is working with PT OT and they are recommending subacute rehab. Patient on 2 L nasal cannula sat 97% afebrile. WBC 7.47 Hgb 11.1 potassium 3.8 PHYSICAL EXAM: VITAL SIGNS: Reviewed. GENERAL: Well-developed in no acute distress. HEENT: No sclera icterus. Extraocular movements grossly intact. Moist buccal mucosa. Head is atraumatic, normocephalic. CHEST: Thora vent has been removed. tenderness to palpation right chest ABDOMEN: Soft. Nondistended. Nontender. NEUROLOGIC: Alert and oriented. Cranial nerves II through XII grossly intact. ASSESSMENT: 1. Fall with multiple right-sided rib fractures and associated pneumothorax status post Thora vent placement and removal 2. Acute fracture of the L1 superior endplate with mild vertebral body height l oss 3. Mildly displaced fracture of the transverse process of L5 4. Right lung pulmonary contusion PLAN: -Patient seen by orthopedic spinal service and they have ordered a CT scan of the lumbar spine -Patient reporting the narcotic pain medication is too strong. Added IV Toradol and Tylenol -Recommend discharge to ECF. Awaiting patient and family decision about ECF placement -Continue incentive spirometer -GI prophylaxis Protonix and DVT prophylaxis Lovenox 30 mg subcu bid Physician Skip Hoist Operator note has been reviewed by physician. Signing provider agrees with the documented findings, assessment, and plan of care. Attestation Patient seen and examined at bedside. Presented with chief complaint of fall and found to multiple right rib fractures. Patient also found to have lumbar fractures. Thora vent has been removed. Denies any significant shortness of breath. She is tired today as she has ambulated and worked with physical and Occupational Therapy. Orthopedic spine surgery recommendations are pending, however likelihood of nonoperative management is noted. Awaiting CT of the lumbar spine. Jenifer Farrar DO Objective - Vital Signs Vital signs: Vital Signs Temp 97.9 F 04/09/25 11:50 Pulse 57 L 06/04/25 11:50 Resp 18 04/09/25 11:50 BP 154/69 04/09/25 11:50 Pulse Ox 97 04/09/25 11:50 FiO2 21 04/07/25 07:50 Intake & Output 04/08/25 04/09/25 04/09/25 18:59 06:59 18:59 Intake Total 490 460 Output Total 200 600 Balance 290 -600 460 Weight 60 kg Intake: IV 10 20 Invasive Line 2 10 20 Oral 480 440 Output: Chest Tube Drainage 0 Thora-Vent 0 Urine 200 600 Other: Voiding Method External Catheter External Catheter Bedside Commode External Catheter # Voids 2 1 # Bowel Movements 0 - Labs CBC & Chem 7: 04/09/25 05:57 04/09/25 05:57 Labs: Abnormal Lab Results - Last 24 Hours (Table) 04/09/25 04/09/25 Range/Units 05:57 05:57 RBC 3.62 L (4.10-5.20) 10*6/uL Hgb 11.1 L (12.0-15.0) g/dL Hct 34.3 L (37.2-46.3) % Sodium 135 L (137-145) mmol/L Chloride 97 L (98-107) mmol/L Glucose 123 H (74-99) mg/dL Total Protein 5.5 L (6.3-8.2) g/dL Albumin 3.1 L (3.5-5.0) g/dL
--- NOTE | 2025-04-09 15:41 | P.PN ---
Subjective Progress Note Date: 04/09/25 This is an 84-year-old female patient with a known history of hyperlipidemia who presented to the emergency room last evening 1 hour after sustaining a ground- level fall. She was complaining of head neck right sided chest and back pain. Right shoulder pain. CT scan of the brain and C-spine revealed no evidence of fractures. CT scan of the chest revealed comminuted mildly displaced acute fractures involving the right lateral 6th, 7th and 8th ribs with associated moderate size right pneumothorax. Groundglass and consolidative changes involving the right lung suggestive of pulmonary contusions. Acute fracture of the L1 superior endplate with mild vertebral body height loss. Extensive subcutaneous emphysema throughout the right chest wall. Lumbar spine, pelvis, right shoulder x-rays all revealed no evidence of fracture. A right sided Thora vent catheter was placed in the emergency department. Follow-up chest x-ray reveals no sizable pneumothorax. She is seen today in consultation in the emergency department. She is currently resting on a stretcher. Awake and alert in no acute distress. Maintaining O2 saturations in the 90s on 3 L/min per nasal cannula. Right sided Thora vent catheter to be placed to Pleur-evac and wall suction. White count 7.6. Hemoglobin 11.5. Platelets 196. Sodium 136. Potassium 4.5. Bicarb 27. BUN 15. Creatinine 0.65. Glucose 114. She is on D 5W and half-normal saline at 60 mL/h. Receiving morphine for pain control. On 04/07/2025, patient is being seen for a follow-up. The patient is being treated for a traumatic right-sided pneumothorax and multiple right-sided rib fractures following a fall. The patient has acute fractures of the right lateral sixth seventh eighth rib and the patient presented with a moderate-sized right-sided pneumothorax for which a Thora vent was inserted. At this point in time, the Thora vent is attached to a waterseal and repeat chest x-ray shows a very tiny right apical pneumothorax and small right-sided pleural effusion. The patient's main issue continues to be pain and she grades her pain to be 5 out of 10 in severity. She is on 2 L of oxygen nasal cannula with pulse ox of 97%. Hemodynamically stable. Denies having any other specific complaints. She is on D5 half-normal saline at a rate of 60 cc an hour. She is on lidocaine patch, receiving morphine on a as needed basis and she is also on [place] 5. The white cell count 7.6, hemoglobin 9.5 with a platelet count of 196. Electrolytes are all within normal limits. No other significant vents overnight. She is resting comfortably in bed. On 04/08/2025, a follow-up chest x-ray was done and the patient has no evidence of any pneumothorax. No evidence of any air leak while being on waterseal. Based on that, the Thora vent was discontinued this morning. This was coordinated with the cardiothoracic team. Meanwhile, the patient is still complaining of skeletal chest wall pain on the right. The patient is hemodynamically stable. She is receiving pain control. She has multiple right-sided rib fractures. The patient is hemodynamically stable. She denies having any other specific complaints. She remains on 2 L of oxygen by nasal cannula. No new labs are available from today. She is using the incentive spirometer and she is also on DuoNeb updrafts. She is on [place] for pain control and receiving morphine on an as-needed basis. She also has a lidocaine patch. 04/09/2025, the patient is being seen for a follow-up. Her pain is around 5 out of 10 in severity and the patient seems to be feeling better. She is weak and s he is able to move around with the help of a physical therapist. She is also using a walker. She has back pain and multilevel degenerative spondylosis and various degrees of spinal stenosis and she also has multiple right-sided rib fractures. The Thora vent was removed yesterday. Respiratory status is stable and the patient is on 2 L of oxygen by nasal cannula. No significant respiratory difficulties. No cough or sputum production. The white seconds at 7.4, hemoglobin is 11.1 with a platelet count of 202. Electrolytes are within normal limits. BUN is 13 with a creatinine of 0.7. She has adequate pain control at this point. She is receiving morphine as needed, Toradol as needed, lidocaine patch and she is also on oral [place]. She remains on Lovenox for DVT prophylaxis 30 mg SQ every 12 hours. She is on oral Protonix. She is on DuoNeb updrafts. She is also on Lipitor. No mental status change. No nausea or or vomiting. No emesis. No other complaints otherwise for now. Objective - Vital Signs Vital signs: Vital Signs Temp 98.5 F 04/09/25 07:32 Pulse 61 04/09/25 07:32 Resp 16 04/09/25 07:32 BP 156/73 04/09/25 07:32 Pulse Ox 97 04/09/25 07:32 FiO2 21 04/07/25 07:50 Intake & Output 04/08/25 04/09/25 04/09/25 18:59 06:59 18:59 Intake Total 490 330 Output Total 200 600 Balance 290 -600 330 Weight 60 kg Intake: IV 10 10 Invasive Line 2 10 10 Oral 480 320 Output: Chest Tube Drainage 0 Thora-Vent 0 Urine 200 600 Other: Voiding Method External Catheter External Catheter Bedside Commode External Catheter # Voids 2 1 # Bowel Movements 0 - Exam CONSTITUTIONAL: Awake and alert, appears mostly comfortable, cooperative, well- developed, well-nourished, no pain, no acute distress EYES: Pupils equal, round, reactive to light, normal ocular movement ENT: Moist mucous membranes without oral lesions present NECK: No masses, no bruits, trachea midline RESPIRATORY: Lungs sounds diminished bilaterally. Respirations even, nonlabored. Currently on 2 L nasal cannula with oxygen saturation 94%. Weak cough. Right sided Thora-vent present to waterseal, no airleak present CARDIOVASCULAR: S1, S2 present. Regular rate and rhythm, sinus rhythm on tele metry. Palpable peripheral pulses bilaterally. No edema present GASTROINTESTINAL: Abdomen soft, nontender, nondistended without masses or organomegaly noted. There is no rebound or guarding present. Active bowel sounds present 4 quadrants. GENITOURINARY: Deferred INTEGUMENTARY: Skin is warm and dry NEUROLOGIC: Cranial nerves II through XII intact, normal coordination, no obvious motor or sensory deficits, speech is normal MUSKULOSKELETAL: Able to move all extremities, strength equal bilaterally, normal posture PSYCHIATRIC: Alert and oriented to person place and time, appropriate affect, intact judgment and insight - Labs CBC & Chem 7: 04/09/25 05:57 04/09/25 05:57 Labs: Abnormal Lab Results - Last 24 Hours (Table) 04/09/25 04/09/25 Range/Units 05:57 05:57 RBC 3.62 L (4.10-5.20) 10*6/uL Hgb 11.1 L (12.0-15.0) g/dL Hct 34.3 L (37.2-46.3) % Sodium 135 L (137-145) mmol/L Chloride 97 L (98-107) mmol/L Glucose 123 H (74-99) mg/dL Total Protein 5.5 L (6.3-8.2) g/dL Albumin 3.1 L (3.5-5.0) g/dL Assessment and Plan Plan: Trauma secondary to ground-level fall with comminuted mildly displaced acute fractures involving the right lateral 6th, 7th and 8th ribs with associated moderate-sized right pneumothorax. Groundglass and consolidative changes involving the residual right lung suggestive of a pulmonary contusion. Extensive subcutaneous emphysema throughout the right chest wall. Status post Thora vent placement. Chest x-ray on 04/08/2025 shows questionable right apical pneumothorax. No evidence of any air leak and the patient is attached to a waterseal. The chest tube/Thora vent was removed on 05/05/2025. Repeat chest x- ray is to be done tomorrow. Acute hypoxic respiratory failure, currently on 2 L of oxygen by nasal cannula Right shoulder, hip and back pain secondary to fall. No evidence of fractures Chronic back pain with multilevel degenerative disc disease and stenosis Hyperlipidemia Gastroesophageal reflux disease Lifelong non-smoker Plan: Keep the patient on O2 at 2 L nasal cannula Repeat chest x-ray in the morning Educated regarding the use of the incentive spirometer Continue bronchodilator Titrate down the FiO2 as tolerated, currently on 2 L of oxygen by nasal cannula Assure adequate pain control Increase her activity as tolerated Working with physical therapy Spine surgery is on the case Cardiothoracic surgery is on the case We will continue to follow and make further recommendations based on her clinical status Time with Patient: Greater than 30
--- NOTE | 2025-04-09 19:41 | CT ---
EXAMINATION TYPE: CT lumbar spine wo con DATE OF EXAM: 04/09/2025 11:09 AM COMPARISON: None. CLINICAL INDICATION: Female, 84 years old with history of lumbar fracture, lumbar fracture, pain TECHNIQUE: CT of the lumbar spine is performed on a spiral scan at 3 mm thick sections. Reconstructed images are performed in the coronal and sagittal planes. Contrast used: mL of , (none if empty) Oral contrast used: (none if empty) CT DLP: 709.3 mGycm, Automated exposure control for dose reduction was used. FINDINGS: T12-L1: No focal disc herniation or significant disc bulge is evident. No spinal canal stenosis or neural foraminal stenosis is present. L1: There is a superior endplate compression deformity which may be acute. No posterior wall displace ment is evident. No spinal canal stenosis is present. Approximately 20% loss of anterior vertebral temi dy height may be present. L1-L2: No focal disc herniation or significant disc bulge is evident. No spinal canal stenosis or n eural foraminal stenosis is present L2-L3: No focal disc herniation or significant disc bulge is evident. No spinal canal stenosis or n eural foraminal stenosis is present L3-L4: Mild disc uncovering is present with anterior thecal sac contact. No spinal canal stenosis is present. Facet hypertrophy is present with posterior lateral thecal sac compression. Moderate bilater al foraminal narrowing is present greater on the left. L4-L5: No focal disc herniation or significant disc bulge is evident. No spinal canal stenosis. The re is moderate left and severe right foraminal stenosis. Facet hypertrophy is present. L5-S1: No focal disc herniation or significant disc bulge is evident. No spinal canal stenosis or n eural foraminal stenosis is present. Right hemilaminectomy appears to be present 5. Minimal grade 1 spondylolisthesis of L3 anteriorly on L4 is present. Note is made of a small left and a larger right pleural effusion. Some adjacent compressive atelectas is is likely present on the right. IMPRESSION: 1. Superior endplate compression deformity of L1 may be acute with approximately 20% loss of anterior vertebral body height. No posterior wall displacement is evident. 2. Severe foraminal stenosis is noted right L4-5 more moderate bilateral foraminal narrowing is prese nt L3-4 and on the left at L4-5 [facility], , 04/09/2025 7:38 PM
--- NOTE | 2025-04-10 07:08 | XR ---
EXAMINATION TYPE: XR chest 1V portable DATE OF EXAM: 04/10/2025 6:46 AM COMPARISON: 04/08/2025 CLINICAL INDICATION: Female, 84 years old with history of dyspnea, TECHNIQUE: XR chest 1V portable view(s) obtained. FINDINGS: The heart size is normal. The pulmonary vasculature is normal. Small bilateral pleural effusions are present. Multiple right-sided rib fractures are evident. Previo us right pneumothorax has resolved. IMPRESSION: 1. Previous right pneumothorax resolved. 2. Small bilateral pleural effusions. 3. Multiple right sided rib fractures [facility], , 04/10/2025 7:05 AM
--- NOTE | 2025-04-10 08:47 | P.PN ---
Subjective Progress Note Date: 04/10/25 Principal diagnosis: Fall, multiple right-sided rib fractures, lumbar compression fracture Patient is evaluated at bedside, she is resting comfortably in her hospital bed. She continues to demonstrate more right sided rib pain from her fractures. She is having minimal back pain at this time. Objective - Vital Signs Vital signs: Vital Signs Temp 97.6 F 04/10/25 04:26 Pulse 60 04/10/25 04:26 Resp 20 04/10/25 04:26 BP 149/83 04/10/25 04:26 Pulse Ox 97 04/10/25 04:26 FiO2 21 04/07/25 07:50 Intake & Output 04/09/25 04/10/25 04/10/25 18:59 06:59 18:59 Intake Total 1000 20 Balance 1000 20 Weight 63 kg Intake: IV 20 20 Invasive Line 2 20 20 Oral 980 Other: Voiding Method Bedside Commode Bedside Commode External Catheter External Catheter # Voids 3 2 # Bowel Movements 0 - Exam Gen: AOx3, NAD VSS stable at this time Integument: No open lesions or sores are visualized throughout the cervical, thoracic or lumbar spine Palpation: Patient does demonstrate some tenderness throughout the lumbar spine both midline and paraspinal region ROM: Full range of motion in all major muscle groups of the bilateral upper and lower extremities, no focal deficits appreciated Sensory Exam: Senory exam to light touch is intact C5-T1 Senosry exam to light touch is intact L2-S1 Motor: 4/5 strength appreciated the bilateral upper extremities with shoulder elevation, shoulder abduction, elbow extension, elbow flexion, wrist extension, wrist flexion, dairy nutritionist 4/5 strength appreciate the bilateral lower extremities with hip flexion, knee extension, knee flexion, plantarflexion, dorsiflexion, EHL, FHL Reflexes: 2/4 in all UE and LE Negative Yony's bilaterally Negative clonus bilaterally Special Test: Negative straight leg raise bilaterally Negative logroll maneuver bilaterally - Labs CBC & Chem 7: 04/09/25 05:57 04/09/25 05:57 Assessment and Plan Assessment: Low back pain L1 VCF Multilevel lumbar spondylosis with varying degrees of stenosis Multiple right-sided rib fractures Status post fall from standing Other medical comorbidities Plan: Plan: I was able to review the CT scan findings with my attending physician, we will c ontinue conservative measures at this time. Due to the rib fractures, we will hold off on LSO brace at this time PT/OT evaluation Weight-bear as tolerated with walker, no bending, lifting or twisting GI and DVT prophylaxis per primary medical service Other specialty recommendations appreciated Orthopedically patient remained stable, plan for follow-up in office in 1 week for clinical and x-ray evaluation. Please contact our service for any further question
--- NOTE | 2025-04-10 12:34 | P.PN ---
Subjective Progress Note Date: 04/10/25 patient is a 84-year-old female with past medical history significant for hyperlipidemia presented the ER after a fall. Patient stated that she was all right last night when she walking in her house when she lost her balance ended up having a ground-level mechanical fall. Patient did not lose her consci ousness. Patient denies any trauma to her head. Denies any jerking movement of any extremity. There is no complaint of weakness of any extremity. Following fall patient started complaining of back pain and neck pain. There is no complaint of shortness of breath. Patient denies any palpitation. There is no complaint of orthopnea or PND. Denies any nausea, vomiting abdominal pain. Patient denies any complaint of dizziness. There is no complaint of headache. Because of fall, patient was brought to the ER Initial lab work done in the ER showed WBC 11.88, hemoglobin 12.1, platelet count 227, sodium 138, potassium 4.1, BUN 17, creatinine 0.66, glucose 121, lactate 1.4 calcium 9.1, AST 29, ALT 17, troponin 0.015 EKG done in the ER showed heart rate of 59 , no ST segment elevation or de pression seen, no T-wave inversions seen. Chest x-ray done in the ER showed no acute cardiopulmonary process X-ray of the pelvis done showed mildly displaced fracture of the right transverse process of L5 Lumbar x-ray done showed slightly displaced fracture of the right transverse process of L5 CT head done showed no acute intracranial process CT cervical spine done showed no evidence of subluxation or fracture of the cervical spine X-ray shoulder done showed no acute fractures CT chest done showed comminuted mildly displaced acute fractures involving the right lateral 6th, 7th and 8th ribs with moderate right-sided pneumothorax Patient admitted to internal medicine service 04/07. Patient seen and examined. Labs done showed WBC 7.67, hemoglobin 11.5, platelet count 196, sodium 130, potassium 4.5, BUN 15, creatinine 0.65 glucose 114. Last chest x-ray done on 04/06 showed resolution of pneumothorax Still has chest tube in place. States she feels much better. 04/08. Patient seen examined. Thora vent was discontinued this morning. Still having rib pain, pain management did right erector spinae nerve block 04/09. Patient seen and examined. No acute issues overnight 04/10. Patient seen examined. States she is doing better. PT and OT recommended rehab, currently waiting placement REVIEW OF SYSTEMS: CONSTITUTIONAL: No fever, no malaise,. CARDIOVASCULAR: No chest pain, no palpitations, no syncope. PULMONARY: No shortness of breath, no cough, GASTROINTESTINAL: No diarrhea, no nausea, no vomiting, no abdominal pain. NEUROLOGICAL: No headaches, no weakness, PHYSICAL EXAMINATION: GENERAL: The patient is alert and oriented x3, ill looking HEENT: Pupils are round and equally reacting to light. EOMI. No scleral icterus. No conjunctival pallor. Normocephalic, atraumatic. No pharyngeal erythema. No thyromegaly. CARDIOVASCULAR: S1 and S2 present. No murmurs, rubs, or gallops. PULMONARY: Chest is clear to auscultation, no wheezing or crackles. Right-sided Thora vent seen ABDOMEN: Soft, nontender, nondistended, normoactive bowel sounds. No palpable organomegaly. MUSCULOSKELETAL: No joint swelling or deformity. EXTREMITIES: No cyanosis, clubbing, or pedal edema. NEUROLOGICAL: Gross neurological examination did not reveal any focal deficits. SKIN: No rashes. Assessment and plan Ground-level fall Fracture of right 6 7th and 8th ribs Right-sided pneumothorax Pulmonary contusion acute fracture of the L1 superior endplate with mild vertebral body height loss Subcutaneous emphysema History of hyperlipidemia Depression Monitor vital signs Monitor CBC Monitor CMP Continue telemetry monitoring Continue oxygen supplementation Aggressive bronchopulmonary hygiene Continue breathing treatments Thora vent was discontinued today. Continue pain management Status post nerve block for rib pain Surgery following PT OT recommended rehab Labs and medication were reviewed.. Continue same treatment. Continue with symptomatic treatment. Resume home medication. Monitor labs and vitals. DVT and GI prophylaxis. Further recommendations as per clinical course of the patient Dictation was produced using [employer] dictation software. please excuse any grammatical, word or spelling errors. Objective - Vital Signs Vital signs: Vital Signs Temp 97.9 F 04/10/25 09:06 Pulse 56 L 04/10/25 11:43 Resp 16 04/10/25 11:43 BP 152/69 04/10/25 11:43 Pulse Ox 97 04/10/25 11:43 FiO2 21 04/07/25 07:50 Intake & Output 04/09/25 04/10/25 04/10/25 18:59 06:59 18:59 Intake Total 1000 20 250 Output Total 1 Balance 1000 20 249 Weight 63 kg Intake: IV 20 20 10 Invasive Line 2 20 20 10 Oral 980 240 Output: Urine/Stool Mix 1 Other: Voiding Method Bedside Commode Bedside Commode Bedside Commode External Catheter External Catheter External Catheter # Voids 3 2 # Bowel Movements 0 - Labs CBC & Chem 7: 04/09/25 05:57 04/09/25 05:57
--- NOTE | 2025-04-10 13:23 | P.PN ---
Subjective Progress Note Date: 04/10/25 SURGICAL PROGRESS NOTE CHIEF COMPLAINT: Fall with multiple right rib fractures and pneumothorax HISTORY OF PRESENT ILLNESS: Patient sitting up in bed. She reports her pain is controlled. She did have some nausea last night that has improved. Repeat chest x-ray shows no pneumothorax. Small bilateral pleural effusions. CT scan of the lumbar spine reports superior endplate compression deformity of L1 may be acute with approximately 20% loss of anterior vertebral body height. No posterior wall displacement is evident. Severe foraminal stenosis at L4-L5 moderate bilateral foraminal narrowing at L3-L4 and on the left at L4-L5. Patient seen by oral orthopedic service. No surgical intervention planned. Due to rib fractures they will hold off on LSO brace at this time. Afebrile. Vital stable. On room air 97%. PHYSICAL EXAM: VITAL SIGNS: Reviewed. GENERAL: Well-developed in no acute distress. HEENT: No sclera icterus. Extraocular movements grossly intact. Moist buccal mucosa. Head is atraumatic, normocephalic. CHEST: Thora vent has been removed. tenderness to palpation right chest ABDOMEN: Soft. Nondistended. Nontender. NEUROLOGIC: Alert and oriented. Cranial nerves II through XII grossly intact. ASSESSMENT: 1. Fall with multiple right-sided rib fractures and associated pneumothorax status post Thora vent placement and removal 2. Acute fracture of the L1 superior endplate with mild vertebral body height loss 3. Right lung pulmonary contusion PLAN: -Patient cleared for discharge by orthopedic spine service and cardiothoracic service -Patient seen by orthopedic spinal service and they have ordered a CT scan of the lumbar spine -Anticipating discharge to [facility] tomorrow once cleared by all consultants -GI prophylaxis Protonix and DVT prophylaxis Lovenox 30 mg subcu bid Physician Supervisor [employer] note has been reviewed by physician. Signing provider agrees with the documented findings, assessment, and plan of care. Objective - Vital Signs Vital signs: Vital Signs Temp 97.9 F 04/10/25 09:06 Pulse 56 L 04/10/25 11:43 Resp 16 04/10/25 11:43 BP 152/69 04/10/25 11:43 Pulse Ox 97 04/10/25 11:43 FiO2 21 04/07/25 07:50 Intake & Output 04/09/25 04/10/25 04/10/25 18:59 06:59 18:59 Intake Total 1000 20 370 Output Total 1 Balance 1000 20 369 Weight 63 kg Intake: IV 20 20 10 Invasive Line 2 20 20 10 Oral 980 360 Output: Urine/Stool Mix 1 Other: Voiding Method Bedside Commode Bedside Commode Bedside Commode External Catheter External Catheter External Catheter # Voids 3 2 # Bowel Movements 0 - Labs CBC & Chem 7: 04/09/25 05:57 04/09/25 05:57
[2025-04-10] MEDS: SENNOSIDES 8.6 MG TAB PO PRN (14:16)
--- NOTE | 2025-04-10 17:07 | P.PN ---
Subjective Progress Note Date: 04/10/25 This is an 84-year-old female patient with a known history of hyperlipidemia who presented to the emergency room last evening 1 hour after sustaining a ground- level fall. She was complaining of head neck right sided chest and back pain. Right shoulder pain. CT scan of the brain and C-spine revealed no evidence of fractures. CT scan of the chest revealed comminuted mildly displaced acute fractures involving the right lateral 6th, 7th and 8th ribs with associated moderate size right pneumothorax. Groundglass and consolidative changes involving the right lung suggestive of pulmonary contusions. Acute fracture of the L1 superior endplate with mild vertebral body height loss. Extensive subcutaneous emphysema throughout the right chest wall. Lumbar spine, pelvis, right shoulder x-rays all revealed no evidence of fracture. A right sided Thora vent catheter was placed in the emergency department. Follow-up chest x-ray reveals no sizable pneumothorax. She is seen today in consultation in the emergency department. She is currently resting on a stretcher. Awake and alert in no acute distress. Maintaining O2 saturations in the 90s on 3 L/min per nasal cannula. Right sided Thora vent catheter to be placed to Pleur-evac and wall suction. White count 7.6. Hemoglobin 11.5. Platelets 196. Sodium 136. Potassium 4.5. Bicarb 27. BUN 15. Creatinine 0.65. Glucose 114. She is on D 5W and half-normal saline at 60 mL/h. Receiving morphine for pain control. On 04/07/2025, patient is being seen for a follow-up. The patient is being treated for a traumatic right-sided pneumothorax and multiple right-sided rib fractures following a fall. The patient has acute fractures of the right lateral sixth seventh eighth rib and the patient presented with a moderate-sized right-sided pneumothorax for which a Thora vent was inserted. At this point in time, the Thora vent is attached to a waterseal and repeat chest x-ray shows a very tiny right apical pneumothorax and small right-sided pleural effusion. The patient's main issue continues to be pain and she grades her pain to be 5 out of 10 in severity. She is on 2 L of oxygen nasal cannula with pulse ox of 97%. Hemodynamically stable. Denies having any other specific complaints. She is on D5 half-normal saline at a rate of 60 cc an hour. She is on lidocaine patch, receiving morphine on a as needed basis and she is also on Ennis 5. The white cell count 7.6, hemoglobin 9.5 with a platelet count of 196. Electrolytes are all within normal limits. No other significant vents overnight. She is resting comfortably in bed. On 04/08/2025, a follow-up chest x-ray was done and the patient has no evidence of any pneumothorax. No evidence of any air leak while being on waterseal. Based on that, the Thora vent was discontinued this morning. This was coordinated with the cardiothoracic team. Meanwhile, the patient is still complaining of skeletal chest wall pain on the right. The patient is hemodynamically stable. She is receiving pain control. She has multiple right-sided rib fractures. The patient is hemodynamically stable. She denies having any other specific complaints. She remains on 2 L of oxygen by nasal cannula. No new labs are available from today. She is using the incentive spirometer and she is also on DuoNeb updrafts. She is on Ennis for pain control and receiving morphine on an as-needed basis. She also has a lidocaine patch. 04/09/2025, the patient is being seen for a follow-up. Her pain is around 5 out of 10 in severity and the patient seems to be feeling better. She is weak and s he is able to move around with the help of a physical therapist. She is also using a walker. She has back pain and multilevel degenerative spondylosis and various degrees of spinal stenosis and she also has multiple right-sided rib fractures. The Thora vent was removed yesterday. Respiratory status is stable and the patient is on 2 L of oxygen by nasal cannula. No significant respiratory difficulties. No cough or sputum production. The white seconds at 7.4, hemoglobin is 11.1 with a platelet count of 202. Electrolytes are within normal limits. BUN is 13 with a creatinine of 0.7. She has adequate pain control at this point. She is receiving morphine as needed, Toradol as needed, lidocaine patch and she is also on oral Ennis. She remains on Lovenox for DVT prophylaxis 30 mg SQ every 12 hours. She is on oral Protonix. She is on DuoNeb updrafts. She is also on Lipitor. No mental status change. No nausea or or vomiting. No emesis. No other complaints otherwise for now. 04/10/2025, the patient is being seen for a follow-up. No respiratory difficulties. Chest soreness is improved and the patient has adequate pain control. Meanwhile, she has not had a bowel movement and the patient will be given Colace 100 mg p.o. twice daily and Senokot on a as needed basis. Repeat chest x-ray was done today and shows right-sided rib fractures. No evidence of any pneumothorax. She is clinically stable. Hemodynamically stable. No new labs are available from today. Working on incentive spirometer and she is also working with physical therapy.The patient's oxygenation remained stable and the patient remains on 2 L and she was transitioned to room air oxygen with a pulse ox of 97%. Objective - Vital Signs Vital signs: Vital Signs Temp 97.9 F 04/10/25 09:06 Pulse 84 04/10/25 09:06 Resp 16 04/10/25 09:06 BP 147/79 04/10/25 09:06 Pulse Ox 97 04/10/25 09:06 FiO2 21 04/07/25 07:50 Intake & Output 04/09/25 04/10/25 04/10/25 18:59 06:59 18:59 Intake Total 1000 20 250 Output Total 1 Balance 1000 20 249 Weight 63 kg Intake: IV 20 20 10 Invasive Line 2 20 20 10 Oral 980 240 Output: Urine/Stool Mix 1 Other: Voiding Method Bedside Commode Bedside Commode Bedside Commode External Catheter External Catheter External Catheter # Voids 3 2 # Bowel Movements 0 - Exam CONSTITUTIONAL: Awake and alert, appears mostly comfortable, cooperative, well- developed, well-nourished, no pain, no acute distress EYES: Pupils equal, round, reactive to light, normal ocular movement ENT: Moist mucous membranes without oral lesions present NECK: No masses, no bruits, trachea midline RESPIRATORY: Lungs sounds diminished bilaterally. Respirations even, nonlabored. Currently on 2 L nasal cannula with oxygen saturation 94%. Weak cough. Right sided Thora-vent present to waterseal, no airleak present CARDIOVASCULAR: S1, S2 present. Regular rate and rhythm, sinus rhythm on telem etry. Palpable peripheral pulses bilaterally. No edema present GASTROINTESTINAL: Abdomen soft, nontender, nondistended without masses or organomegaly noted. There is no rebound or guarding present. Active bowel sounds present 4 quadrants. GENITOURINARY: Deferred INTEGUMENTARY: Skin is warm and dry NEUROLOGIC: Cranial nerves II through XII intact, normal coordination, no obvious motor or sensory deficits, speech is normal MUSKULOSKELETAL: Able to move all extremities, strength equal bilaterally, normal posture PSYCHIATRIC: Alert and oriented to person place and time, appropriate affect, intact judgment and insight - Labs CBC & Chem 7: 04/09/25 05:57 04/09/25 05:57 Assessment and Plan Plan: Trauma secondary to ground-level fall with comminuted mildly displaced acute fractures involving the right lateral 6th, 7th and 8th ribs with associated moderate-sized right pneumothorax. Groundglass and consolidative changes involving the residual right lung suggestive of a pulmonary contusion. Extensive subcutaneous emphysema throughout the right chest wall. Status post Thora vent placement. Chest x-ray on 04/08/2025 shows questionable right apical pneumothorax. No evidence of any air leak and the patient is attached to a waterseal. The chest tube/Thora vent was removed on 05/05/2025. Repeat chest x- ray on 04/10/2025 shows no evidence of any pneumothorax Acute hypoxic respiratory failure, currently on 2 L of oxygen by nasal cannula, transition to room air oxygen Right shoulder, hip and back pain secondary to fall. No evidence of fractures Chronic back pain with multilevel degenerative disc disease and stenosis Hyperlipidemia Gastroesophageal reflux disease Lifelong non-smoker Plan: Monitor oxygenation and patient has been transition to room air oxygen Repeat chest x-ray in the morning showed no evidence of any pneumothorax Educated regarding the use of the incentive spirometer Continue bronchodilator Laxatives in the form of Senokot and Colace Assure adequate pain control Increase her activity as tolerated Working with physical therapy Spine surgery is on the case Cardiothoracic surgery is on the case We will continue to follow and make further recommendations based on her clinical status
[2025-04-10] MEDS: ZINC OXIDE PASTE (Z-GUARD) 1 APPLIC TOPICAL PRN (20:57)
[2025-04-11 08:18] VITALS: RESP 18; TEMP 98.6
[2025-04-11 10:48] VITALS: BMI 22.7
--- NOTE | 2025-04-11 11:58 | P.PN ---
Subjective Progress Note Date: 04/11/25 patient is a 84-year-old female with past medical history significant for hyperlipidemia presented the ER after a fall. Patient stated that she was all right last night when she walking in her house when she lost her balance ended up having a ground-level mechanical fall. Patient did not lose her consci ousness. Patient denies any trauma to her head. Denies any jerking movement of any extremity. There is no complaint of weakness of any extremity. Following fall patient started complaining of back pain and neck pain. There is no complaint of shortness of breath. Patient denies any palpitation. There is no complaint of orthopnea or PND. Denies any nausea, vomiting abdominal pain. Patient denies any complaint of dizziness. There is no complaint of headache. Because of fall, patient was brought to the ER Initial lab work done in the ER showed WBC 11.88, hemoglobin 12.1, platelet count 227, sodium 138, potassium 4.1, BUN 17, creatinine 0.66, glucose 121, lactate 1.4 calcium 9.1, AST 29, ALT 17, troponin 0.015 EKG done in the ER showed heart rate of 59 , no ST segment elevation or de pression seen, no T-wave inversions seen. Chest x-ray done in the ER showed no acute cardiopulmonary process X-ray of the pelvis done showed mildly displaced fracture of the right transverse process of L5 Lumbar x-ray done showed slightly displaced fracture of the right transverse process of L5 CT head done showed no acute intracranial process CT cervical spine done showed no evidence of subluxation or fracture of the cervical spine X-ray shoulder done showed no acute fractures CT chest done showed comminuted mildly displaced acute fractures involving the right lateral 6th, 7th and 8th ribs with moderate right-sided pneumothorax Patient admitted to internal medicine service 04/07. Patient seen and examined. Labs done showed WBC 7.67, hemoglobin 11.5, platelet count 196, sodium 130, potassium 4.5, BUN 15, creatinine 0.65 glucose 114. Last chest x-ray done on 04/06 showed resolution of pneumothorax Still has chest tube in place. States she feels much better. 04/08. Patient seen examined. Thora vent was discontinued this morning. Still having rib pain, pain management did right erector spinae nerve block 04/09. Patient seen and examined. No acute issues overnight 04/10. Patient seen examined. States she is doing better. PT and OT recommended rehab, currently waiting placement 04/11. Patient seen examined. No acute issues overnight REVIEW OF SYSTEMS: CONSTITUTIONAL: No fever, no malaise,. CARDIOVASCULAR: No chest pain, no palpitations, no syncope. PULMONARY: No shortness of breath, no cough, GASTROINTESTINAL: No diarrhea, no nausea, no vomiting, no abdominal pain. NEUROLOGICAL: No headaches, no weakness, PHYSICAL EXAMINATION: GENERAL: The patient is alert and oriented x3, ill looking HEENT: Pupils are round and equally reacting to light. EOMI. No scleral icterus. No conjunctival pallor. Normocephalic, atraumatic. No pharyngeal erythema. No thyromegaly. CARDIOVASCULAR: S1 and S2 present. No murmurs, rubs, or gallops. PULMONARY: Chest is clear to auscultation, no wheezing or crackles. Right-sided Thora vent seen ABDOMEN: Soft, nontender, nondistended, normoactive bowel sounds. No palpable organomegaly. MUSCULOSKELETAL: No joint swelling or deformity. EXTREMITIES: No cyanosis, clubbing, or pedal edema. NEUROLOGICAL: Gross neurological examination did not reveal any focal deficits. SKIN: No rashes. Assessment and plan Ground-level fall Fracture of right 6 7th and 8th ribs Right-sided pneumothorax Pulmonary contusion acute fracture of the L1 superior endplate with mild vertebral body height loss Subcutaneous emphysema History of hyperlipidemia Depression Monitor vital signs Monitor CBC Monitor CMP Continue telemetry monitoring Continue oxygen supplementation Aggressive bronchopulmonary hygiene Continue breathing treatments Continue pain management Status post nerve block for rib pain Surgery following PT OT recommended rehab Labs and medication were reviewed.. Continue same treatment. Continue with symptomatic treatment. Resume home medication. Monitor labs and vitals. DVT and GI prophylaxis. Further recommendations as per clinical course of the patient Dictation was produced using [employer] dictation software. please excuse any grammatical, word or spelling errors. Objective - Vital Signs Vital signs: Vital Signs Temp 98.6 F 04/11/25 08:00 Pulse 67 04/11/25 08:00 Resp 18 04/11/25 08:00 BP 124/79 04/11/25 08:00 Pulse Ox 95 04/11/25 08:13 FiO2 21 04/07/25 07:50 Intake & Output 04/10/25 04/11/25 04/11/25 18:59 06:59 18:59 Intake Total 500 20 250 Output Total 1 400 Balance 499 -380 250 Weight 62 kg Intake: IV 20 20 10 Invasive Line 2 20 20 10 Oral 480 240 Output: Urine 400 Urine/Stool Mix 1 Other: Voiding Method Bedside Commode Bedside Commode External Catheter External Catheter # Voids 1 # Bowel Movements 1 - Labs CBC & Chem 7: 04/09/25 05:57 04/09/25 05:57
[2025-04-11] MEDS: SENNOSIDES 8.6 MG TAB PO SCH (12:37)
[2025-04-11] MEDS: polyethylene glycoL 3350 17 GM POWD.PACK PO SCH (12:37)
[2025-04-11 12:52] VITALS: BP 143/75; PULSE 70
--- NOTE | 2025-04-11 13:03 | P.DS ---
Providers Date of admission: 04/05/25 22:36 Expected date of discharge: 04/11/25 Attending physician: Karl Verma DO Consults: 04/05/25 22:32 Consult Physician Routine Consulting Provider: [facility] Consult Reason/Comments: Pulmonary Contusion Do you want consulting provider notified?: Yes Consult Physician Routine Consulting Provider: Claus Gavin Consult Reason/Comments: ICU Do you want consulting provider notified?: Yes Consult Physician Routine Consulting Provider: Gennaro Chopra Consult Reason/Comments: [employer] Do you want consulting provider notified?: Yes 04/07/25 15:05 Consult Physician Routine Consulting Provider: Rosalino Cohen Consult Reason/Comments: Rib fracture with pneumothorax Do you want consulting provider notified?: Yes 04/08/25 12:52 Consult Physician Routine Consulting Provider: Carroll Curiel Consult Reason/Comments: L1 fracture, L5 transverse process fracture Do you want consulting provider notified?: Yes Primary care physician: Stated None Hospital Course: Discharge diagnosis 1. Fall with multiple right-sided rib fractures and associated pneumothorax status post Thora vent placement and removal 2. Acute fracture of the L1 superior endplate with mild vertebral body height loss 3. Right lung pulmonary contusion [facility] This is a 84-year-old female who presented to the ER after a fall. Patient reports she had lost balance and had fallen to the ground. Denies any loss of consciousness. Patient admitted to the trauma service. Patient had imaging completed CT scan of the head and neck showed no acute process. CT scan of the chest reported comminuted mildly displaced acute fractures involving the right lateral 6th, 7th and 8th ribs with associated moderate-sized pneumothorax. Also evidence of acute fracture of the L1 superior endplate with mild vertebral body height loss. Extensive subcutaneous emphysema throughout the right chest wall. Patient had Thora vent chest tube placed. Patient had subsequent chest x-rays completed showing improvement in the pneumothorax. The chest tube was removed. She was seen by both pulmonary service and cardio thoracic team. Patient also seen by orthopedic service for her lumbar spine fracture. Unfortunately due to the rib fracture she is not a candidate for a back brace at this time. They did not recommend any surgical intervention. Pain management was recommended. Pain service did see patient and patient received block which did not help significantly with her pain. Her pain is controlled with the [place] and Motrin. Patient has worked with physical therapy and they are recommending subacute rehab at discharge. Patient has been cleared by all consultants. She is stable for discharge to rehab. She is afebrile. Tolerating diet. She is stable for discharge. Please refer to chart for any further details. Physician Technical Support Engineer note has been reviewed by physician. Signing provider agrees with the documented findings, assessment, and plan of care. Attestation Patient seen and examined at bedside. Admitted secondary to fall with multiple right-sided rib fractures and associated pneumothorax status post Thora vent placement. Also found to have acute fracture of L1 superior endplate along with L5. She was evaluated by orthospine with no surgical intervention planned. Patient did progress throughout her admission. Pain was controlled. Patient would benefit from further rehab and plan is for discharge to rehab facility. She is cleared by all services for discharge. Jenifer Farrar DO Patient Condition at Discharge: Stable Plan - Discharge Summary New Discharge Prescriptions: New HYDROcodone/APAP 5-325MG [Hometown 5-325] 1 tab PO Q6HR PRN 3 Days #12 tab PRN Reason: Pain Sennosides [Senokot] 8.6 mg PO BID tab Ibuprofen [Motrin] 600 mg PO Q8HR PRN #30 tab PRN Reason: Pain Continue Escitalopram [Lexapro] 10 mg PO DAILY Simvastatin [Zocor] 40 mg PO DAILY Omeprazole 40 mg PO DAILY Discharge Medication List Escitalopram [Lexapro] 10 mg PO DAILY 04/06/25 [History] Omeprazole 40 mg PO DAILY 04/06/25 [History] Simvastatin [Zocor] 40 mg PO DAILY 04/06/25 [History] HYDROcodone/APAP 5-325MG [[place]ometown 5-325] 1 tab PO Q6HR PRN 3 Days #12 tab 04/11/25 [Rx] Ibuprofen [Motrin] 600 mg PO Q8HR PRN #30 tab 04/11/25 [Rx] Sennosides [Senokot] 8.6 mg PO BID tab 04/11/25 [Rx] Follow up Appointment(s)/Referral(s): Mayra Veliz NPC [Nurse Practitioner] - 1 Week None,Stated [Primary Care Provider] - 1-2 days Jimenez Echols MD [STAFF PHYSICIAN] - 1 Week Activity/Diet/Wound Care/Special Instructions: CHEST TUBE DISCHARGE INSTRUCTIONS: 1. No driving for 2 weeks, or until physician gives their ok. 2. No lifting, pushing, or pulling more than 10 pounds for 2 weeks. The physician will advise of any restriction changes. 3. Continue pain control per as needed orders. Alternate acetaminophen (Tylenol) and ibuprofen (Motrin/Advil) for pain. 4. Continue with incentive spirometry and splinting until otherwise directed by the physician. 5. Leave chest tube dressing for 48 hours. After that, remove all dressings and shower daily. 6. Routine incision care. No powders, lotions, ointments on incisions. 7. Please call surgeon/POLICEWOMAN for temp greater than 101 F or purulent drainage from incisions. Diet Regular Discharge/Stand Alone Forms: Anes Pain/[facility] Instructions Discharge Disposition: TRANSFER TO SNF/ECF
--- NOTE | 2025-04-11 21:15 | P.PN ---
Subjective Progress Note Date: 04/11/25 This is an 84-year-old female patient with a known history of hyperlipidemia who presented to the emergency room last evening 1 hour after sustaining a ground- level fall. She was complaining of head neck right sided chest and back pain. Right shoulder pain. CT scan of the brain and C-spine revealed no evidence of fractures. CT scan of the chest revealed comminuted mildly displaced acute fractures involving the right lateral 6th, 7th and 8th ribs with associated moderate size right pneumothorax. Groundglass and consolidative changes involving the right lung suggestive of pulmonary contusions. Acute fracture of the L1 superior endplate with mild vertebral body height loss. Extensive subcutaneous emphysema throughout the right chest wall. Lumbar spine, pelvis, right shoulder x-rays all revealed no evidence of fracture. A right sided Thora vent catheter was placed in the emergency department. Follow-up chest x-ray reveals no sizable pneumothorax. She is seen today in consultation in the emergency department. She is currently resting on a stretcher. Awake and alert in no acute distress. Maintaining O2 saturations in the 90s on 3 L/min per nasal cannula. Right sided Thora vent catheter to be placed to Pleur-evac and wall suction. White count 7.6. Hemoglobin 11.5. Platelets 196. Sodium 136. Potassium 4.5. Bicarb 27. BUN 15. Creatinine 0.65. Glucose 114. She is on D 5W and half-normal saline at 60 mL/h. Receiving morphine for pain control. On 04/07/2025, patient is being seen for a follow-up. The patient is being treated for a traumatic right-sided pneumothorax and multiple right-sided rib fractures following a fall. The patient has acute fractures of the right lateral sixth seventh eighth rib and the patient presented with a moderate-sized right-sided pneumothorax for which a Thora vent was inserted. At this point in time, the Thora vent is attached to a waterseal and repeat chest x-ray shows a very tiny right apical pneumothorax and small right-sided pleural effusion. The patient's main issue continues to be pain and she grades her pain to be 5 out of 10 in severity. She is on 2 L of oxygen nasal cannula with pulse ox of 97%. Hemodynamically stable. Denies having any other specific complaints. She is on D5 half-normal saline at a rate of 60 cc an hour. She is on lidocaine patch, receiving morphine on a as needed basis and she is also on Carson 5. The white cell count 7.6, hemoglobin 9.5 with a platelet count of 196. Electrolytes are all within normal limits. No other significant vents overnight. She is resting comfortably in bed. On 04/08/2025, a follow-up chest x-ray was done and the patient has no evidence of any pneumothorax. No evidence of any air leak while being on waterseal. Based on that, the Thora vent was discontinued this morning. This was coordinated with the cardiothoracic team. Meanwhile, the patient is still complaining of skeletal chest wall pain on the right. The patient is hemodynamically stable. She is receiving pain control. She has multiple right-sided rib fractures. The patient is hemodynamically stable. She denies having any other specific complaints. She remains on 2 L of oxygen by nasal cannula. No new labs are available from today. She is using the incentive spirometer and she is also on DuoNeb updrafts. She is on Carson for pain control and receiving morphine on an as-needed basis. She also has a lidocaine patch. 04/09/2025, the patient is being seen for a follow-up. Her pain is around 5 out of 10 in severity and the patient seems to be feeling better. She is weak and s he is able to move around with the help of a physical therapist. She is also using a walker. She has back pain and multilevel degenerative spondylosis and various degrees of spinal stenosis and she also has multiple right-sided rib fractures. The Thora vent was removed yesterday. Respiratory status is stable and the patient is on 2 L of oxygen by nasal cannula. No significant respiratory difficulties. No cough or sputum production. The white seconds at 7.4, hemoglobin is 11.1 with a platelet count of 202. Electrolytes are within normal limits. BUN is 13 with a creatinine of 0.7. She has adequate pain control at this point. She is receiving morphine as needed, Toradol as needed, lidocaine patch and she is also on oral Carson. She remains on Lovenox for DVT prophylaxis 30 mg SQ every 12 hours. She is on oral Protonix. She is on DuoNeb updrafts. She is also on Lipitor. No mental status change. No nausea or or vomiting. No emesis. No other complaints otherwise for now. 04/10/2025, the patient is being seen for a follow-up. No respiratory difficulties. Chest soreness is improved and the patient has adequate pain control. Meanwhile, she has not had a bowel movement and the patient will be given Colace 100 mg p.o. twice daily and Senokot on a as needed basis. Repeat chest x-ray was done today and shows right-sided rib fractures. No evidence of any pneumothorax. She is clinically stable. Hemodynamically stable. No new labs are available from today. Working on incentive spirometer and she is also working with physical therapy.The patient's oxygenation remained stable and the patient remains on 2 L and she was transitioned to room air oxygen with a pulse ox of 97%. 04/11/2025, the patient has no major respiratory difficulties. She is complaining of some limited GI upset which is a chronic problem for her. Her pain is under adequate control and the patient is status post fall and multiple right-sided rib fractures that was complicated by development of pneumothorax which ultimately recovered and the patient has an acute fracture of the L1 superior endplate and a mild vertebral body height loss. She also sustained a pulmonary contusion. She is going to be discharged on Carson for pain control and ibuprofen as needed basis. Home medication will be resumed. She is currently on 2 L of oxygen by nasal cannula with pulse ox of 95%. The white cell count is at 7.4 with a hemoglobin 11.1 and electrolytes all within normal limits. No new complaints otherwise for now. Objective - Vital Signs Vital signs: Vital Signs Temp 98.6 F 04/11/25 08:00 Pulse 67 04/11/25 08:00 Resp 18 04/11/25 08:00 BP 124/79 04/11/25 08:00 Pulse Ox 95 04/11/25 08:13 FiO2 21 04/07/25 07:50 Intake & Output 04/10/25 04/11/25 04/11/25 18:59 06:59 18:59 Intake Total 500 20 250 Output Total 1 400 1 Balance 499 -380 249 Weight 62 kg 62 kg Intake: IV 20 20 10 Invasive Line 2 20 20 10 Oral 480 240 Output: Urine 400 Urine/Stool Mix 1 1 Other: Voiding Method Bedside Commode Bedside Commode External Catheter External Catheter # Voids 1 # Bowel Movements 1 - Exam CONSTITUTIONAL: Awake and alert, appears mostly comfortable, cooperative, well- developed, well-nourished, no pain, no acute distress EYES: Pupils equal, round, reactive to light, normal ocular movement ENT: Moist mucous membranes without oral lesions present NECK: No masses, no bruits, trachea midline RESPIRATORY: Lungs sounds diminished bilaterally. Respirations even, nonlabored. Currently on 2 L nasal cannula with oxygen saturation 94%. Weak cough. Right sided Thora-vent present to waterseal, no airleak present CARDIOVASCULAR: S1, S2 present. Regular rate and rhythm, sinus rhythm on telemetry. Palpable peripheral pulses bilaterally. No edema present GASTROINTESTINAL: Abdomen soft, nontender, nondistended without masses or organomegaly noted. There is no rebound or guarding present. Active bowel sounds present 4 quadrants. GENITOURINARY: Deferred INTEGUMENTARY: Skin is warm and dry NEUROLOGIC: Cranial nerves II through XII intact, normal coordination, no obvious motor or sensory deficits, speech is normal MUSKULOSKELETAL: Able to move all extremities, strength equal bilaterally, normal posture PSYCHIATRIC: Alert and oriented to person place and time, appropriate affect, intact judgment and insight - Labs CBC & Chem 7: 04/09/25 05:57 04/09/25 05:57 Assessment and Plan Plan: Trauma secondary to ground-level fall with comminuted mildly displaced acute fractures involving the right lateral 6th, 7th and 8th ribs with associated moderate-sized right pneumothorax. Groundglass and consolidative changes involving the residual right lung suggestive of a pulmonary contusion. Extensive subcutaneous emphysema throughout the right chest wall. Status post Thora vent placement. Chest x-ray on 04/08/2025 shows questionable right apical pneumothorax. No evidence of any air leak and the patient is attached to a waterseal. The chest tube/Thora vent was removed on 05/05/2025. Repeat chest x- ray on 04/10/2025 shows no evidence of any pneumothorax. The patient remains clinically stable. Acute hypoxic respiratory failure, currently on 2 L of oxygen by nasal cannula Right shoulder, hip and back pain secondary to fall. No evidence of fractures Chronic back pain with multilevel degenerative disc disease and stenosis Hyperlipidemia Gastroesophageal reflux disease Lifelong non-smoker Plan: Monitor oxygenation and patient has been transition to room air oxygen, assess for home O2 Pneumothorax has recovered Educated regarding the use of the incentive spirometer Continue bronchodilator Laxatives in the form of Senokot and Colace Assure adequate pain control and the patient is on Carson and Motrin Increase her activity as tolerated Working with physical therapy Spine surgery is on the case Cardiothoracic surgery is on the case May be able to get discharged if cleared by the rest of the consultants. Overall pulmonary status is stable.
== END 2025-04-11 16:08 | DRG 184 ==
LOC: EC 20:06 → 2SICU 22:36 → 3SCARD 23:19
PROVIDERS: ADMIT Surgery; ATTEND Surgery
PROC: 0W9930Z Drainage of Right Pleural Cavity with Drainage Device, Percutaneous Approach (ICD-10-PCS; 2025-04-07)
PROC: 3E0T3BZ Introduction of Anesthetic Agent into Peripheral Nerves and Plexi, Percutaneous Approach (ICD-10-PCS; principal; 2025-04-08 13:45)
DX: S22.41XA Multiple fractures of ribs, right side, initial encounter for closed fracture (principal); S27.0XXA Traumatic pneumothorax, initial encounter; T79.7XXA Traumatic subcutaneous emphysema, initial encounter; S32.010A Wedge compression fracture of first lumbar vertebra, initial encounter for closed fracture; S27.321A Contusion of lung, unilateral, initial encounter; S32.058A Other fracture of fifth lumbar vertebra, initial encounter for closed fracture; S32.019A Unspecified fracture of first lumbar vertebra, initial encounter for closed fracture; F32.A Depression, unspecified; M25.511 Pain in right shoulder; S20.229A Contusion of unspecified back wall of thorax, initial encounter; E78.5 Hyperlipidemia, unspecified; M25.551 Pain in right hip; K21.9 Gastro-esophageal reflux disease without esophagitis; M47.816 Spondylosis without myelopathy or radiculopathy, lumbar region; M48.061 Spinal stenosis, lumbar region without neurogenic claudication; Z79.899 Other long term (current) drug therapy; W01.0XXA Fall on same level from slipping, tripping and stumbling without subsequent striking against object, initial encounter; Y92.009 Unspecified place in unspecified non-institutional (private) residence as the place of occurrence of the external cause; Z85.828 Personal history of other malignant neoplasm of skin; Z90.710 Acquired absence of both cervix and uterus; Z96.642 Presence of left artificial hip joint; Z96.651 Presence of right artificial knee joint; Z88.0 Allergy status to penicillin; Z88.5 Allergy status to narcotic agent; Z88.2 Allergy status to sulfonamides; Z88.8 Allergy status to other drugs, medicaments and biological substances; Z88.1 Allergy status to other antibiotic agents
CPT/HCPCS: 32551; 64999; 70450; 71045; 71250; 72100; 72125; 72131; 72170; 80053; 83605; 83690; 83735; 84100; 84484; 85025; 85027; 85610; 85730; 93005; 94760; 96361; 96374; 96375; 96376; 99291